=== PATIENT | male | born 1960 | race African-American/Black ===

== ENCOUNTER → 2016-08-22 | Outpatient (CLI) | payer OTHER ==
[2016-08-22 10:50] LABS: APPEARANCE,URINE CLEAR; BILIRUBIN,URINE NEGATIVE (NEGATIVE); GLUCOSE, URINE >=500 mg/dL (NEGATIVE); KETONES,URINE TRACE mg/dL (NEGATIVE); LEUKOCYTE ESTERASE,URINE NEGATIVE (NEGATIVE); NITRITE,URINE NEGATIVE (NEGATIVE); PROTEIN,URINE NEGATIVE (NEGATIVE); URINE SPECIFIC GRAVITY 1.026; UROBILINOGEN,URINE NEGATIVE mg/dL (<2.0)
[2016-08-22 10:55] LABS: ABSOLUTE BASOPHILS # (AUTO) 0.1 10^3/uL (0.0-0.2); ABSOLUTE EOSINOPHILS # (AUTO) 0.2 10^3/uL (0.0-0.6); ABSOLUTE LYMPHOCYTES (AUTO) 4.5 10^3/uL (0.5-4.7); ABSOLUTE MONOCYTES (AUTO) 0.7 10^3/uL (0.1-1.4); ABSOLUTE NEUT (AUTO) 2.6 10^3/uL (1.7-8.2); EOSINOPHILS % (AUTO) 2.9 % (0-6); HEMOGLOBIN 15.1 g/dL (13.5-17.0); HGB HCT DIFFERENCE -1.7; MEAN CORPUSCULAR HEMOGLOBIN 27.6 pg (27.0-33.4); MEAN CORPUSCULAR HGB CONC 32.2 g/dL (32.0-36.0); MEAN CORPUSCULAR VOLUME 86 fl (80-97); MONOCYTES % (AUTO) 8.4 % (3-13); RED BLOOD COUNT 5.47 10^6/uL (4.35-5.55); RED CELL DISTRIBUTION WIDTH 15.7 % (11.5-14.0); SEGMENTED NEUTROPHILS % (AUTO) 31.7 % (42-78); WHITE BLOOD COUNT 8.1 10^3/uL (4.0-10.5)
[2016-08-22 11:20] LABS: ALANINE AMINOTRANSFERASE 27 U/L (21-72); ALKALINE PHOSPHATASE 58 U/L (38-126); ANION GAP 10 (5-19); ASPARTATE AMINO TRANSFERASE 21 U/L (17-59); BILIRUBIN,TOTAL 0.7 mg/dL (0.2-1.3); BLOOD UREA NITROGEN 14 mg/dL (7-20); CALCIUM 9.6 mg/dL (8.4-10.2); CARBON DIOXIDE 30 mmol/L (22-30); CHLORIDE 101 mmol/L (98-107); CREATININE RESULT 1.14 mg/dL (0.52-1.25); GLUCOSE 181 mg/dL (75-110); POTASSIUM 4.7 mmol/L (3.6-5.0); SODIUM 141.2 mmol/L (137-145); TOTAL PROTEIN 7.1 g/dL (6.3-8.2)
[2016-08-23 17:17] LABS: CHOLESTEROL 144.65 mg/dL (0-200); Direct HDL 41 mg/dL (>40); TRIGLYCERIDES 106 mg/dL (<150)
[2016-08-23 17:28] LABS: DIRECT LDL 87 mg/dL (<100)
== END ==
LOC: OD 10:15
PROVIDERS: ATTEND Internal Medicine Cardiovascular Disease
DX: E78.00 Pure hypercholesterolemia, unspecified (principal); Z79.01 Long term (current) use of anticoagulants; Z79.899 Other long term (current) drug therapy
CPT/HCPCS: 36415; 80048; 80061; 80076; 81001; 82272; 85025; 85730

== ENCOUNTER 2016-11-19 14:12 | Emergency (ER) | payer OTHER ==
[2016-11-19] MEDS ORDERED: ASPIRIN 81 MG TABLET, CHEWABLE PO ONE (15:28)
--- NOTE | 2016-11-19 15:28 | ER Document Report ---
ED Medical Screen (RME) - General Chief Complaint: Chest Pain Stated Complaint: CHEST PAIN Time Seen by Provider: 11/19/16 15:27 Mode of Arrival: Ambulatory Information source: Patient Notes: 56-year-old man presenting to the emergency room with intermittent chest discomfort, dyspnea on exertion and exertional fatigue. Patient states his symptoms in [place] going on for the past 2 days. TRAVEL OUTSIDE OF THE [place] IN LAST 30 DAYS: No - Related Data Allergies/Adverse Reactions: metoclopramide HCl [From Reglan] Allergy (Severe, Verified 11/19/16 15:11) Tachycardia adhesive [Adhesive] Allergy (Intermediate, Verified 11/19/16 15:11) BLISTER Past Medical History - Past Medical History Cardiac Medical History: Reports: Hx Coronary Artery Disease, Hx Hypertension Denies: Hx Heart Attack Pulmonary Medical History: Denies: Hx Asthma, Hx Bronchitis, Hx COPD, Hx Pneumonia Neurological Medical History: Denies: Hx Cerebrovascular Accident, Hx Seizures Endocrine Medical History: Reports: Hx Diabetes Mellitus Type 2 Renal/ Medical History: Reports: Hx Kidney Stones. Denies: Hx Peritoneal Dialysis GI Medical History: Reports: Hx Hiatal Hernia. Denies: Hx Hepatitis, Hx Ulcer Musculoskeltal Medical History: Reports Hx Arthritis - general Psychiatric Medical History: Reports: Hx Depression Infectious Medical History: Denies: Hx Hepatitis Past Surgical History: Reports: Hx Orthopedic Surgery - R foot. Denies: Hx Open Heart Surgery, Hx Pacemaker - Immunizations Hx Diphtheria, Pertussis, Tetanus Vaccination: No Physical Exam - Vital signs Vitals: Temp Pulse Resp BP Pulse Ox 98.5 F 86 18 98/69 L 98 11/19/16 14:49 11/19/16 14:49 11/19/16 14:49 11/19/16 14:49 11/19/16 14:49 Course - Vital Signs Vital signs: Temp Pulse Resp BP Pulse Ox 98.5 F 86 18 98/69 L 98 11/19/16 14:49 11/19/16 14:49 11/19/16 14:49 11/19/16 14:49 11/19/16 14:49
[2016-11-19 15:51] LABS: ABSOLUTE EOSINOPHILS # (AUTO) 0.2 10^3/uL (0.0-0.6); ABSOLUTE LYMPHOCYTES (AUTO) 4.5 10^3/uL (0.5-4.7); ABSOLUTE MONOCYTES (AUTO) 0.6 10^3/uL (0.1-1.4); ABSOLUTE NEUT (AUTO) 2.6 10^3/uL (1.7-8.2); BASOPHILS % (AUTO) 0.4 % (0-2); EOSINOPHILS % (AUTO) 2.7 % (0-6); HEMATOCRIT 45.2 % (37.9-51.0); HEMOGLOBIN 15.3 g/dL (13.5-17.0); HGB HCT DIFFERENCE 0.7; LYMPHOCYTES % (AUTO) 55.8 % (13-45); MEAN CORPUSCULAR HEMOGLOBIN 29.9 pg (27.0-33.4); MEAN CORPUSCULAR HGB CONC 33.7 g/dL (32.0-36.0); MEAN CORPUSCULAR VOLUME 89 fl (80-97); RED CELL DISTRIBUTION WIDTH 15.4 % (11.5-14.0); SEGMENTED NEUTROPHILS % (AUTO) 33.1 % (42-78)
[2016-11-19 16:10] LABS: ALANINE AMINOTRANSFERASE 32 U/L (21-72); ALBUMIN 3.6 g/dL (3.5-5.0); ALKALINE PHOSPHATASE 45 U/L (38-126); ANION GAP 13 (5-19); ASPARTATE AMINO TRANSFERASE 30 U/L (17-59); BILIRUBIN,DIRECT 0.3 mg/dL (0.0-0.4); BILIRUBIN,TOTAL 0.7 mg/dL (0.2-1.3); BLOOD UREA NITROGEN 20 mg/dL (7-20); CALCIUM 9.9 mg/dL (8.4-10.2); CARBON DIOXIDE 31 mmol/L (22-30); CHLORIDE 100 mmol/L (98-107); CREATINE KINASE 176 U/L (55-170); CREATININE RESULT 1.17 mg/dL (0.52-1.25); GLUCOSE 87 mg/dL (75-110); SODIUM 143.5 mmol/L (137-145); TOTAL PROTEIN 6.6 g/dL (6.3-8.2)
[2016-11-19 16:13] LABS: POTASSIUM 4.4 mmol/L (3.6-5.0)
--- NOTE | 2016-11-19 16:16 | ER Document Report ---
ED Cardiac <MARSHALL BAE - Last Filed: 11/19/16 20:59> - General Mode of Arrival: Ambulatory Information source: Patient TRAVEL OUTSIDE OF THE [place] IN LAST 30 DAYS: No <YELITZAKYLAH - Last Filed: 11/20/16 22:31> - General Chief Complaint: Chest Pain Stated Complaint: CHEST PAIN Time Seen by Provider: 11/19/16 15:27 Notes: Patient is a 56-year-old -[place] male who presents to the ER today with chest pain on exertion 2 days. Patient has a significant history with 3 heart attacks and one pulmonary embolism, currently on Xarelto. Patient states it hurts to take a deep breath and that his chest pain is all midsternal and sharp in nature. He states that when he lies still there is no chest pain, only with movement. Is not tender to touch. He states that prior to this chest pain starting he did have a day of "really bad acid reflux." He does take Nexium for this and did take it as prescribed. He denies any COPD, asthma , CHF. (KYLAH TORRE) - Related Data Allergies/Adverse Reactions: metoclopramide HCl [From Reglan] Allergy (Severe, Verified 11/19/16 15:11) Tachycardia adhesive [Adhesive] Allergy (Intermediate, Verified 11/19/16 15:11) BLISTER Past Medical History - General Information source: Patient - Social History Smoking Status: Former Smoker Family History: Reviewed & Not Pertinent Patient has suicidal ideation: No Patient has homicidal ideation: No - Past Medical History Cardiac Medical History: Reports: Hx Coronary Artery Disease, Hx Hypertension Denies: Hx Heart Attack Pulmonary Medical History: Denies: Hx Asthma, Hx Bronchitis, Hx COPD, Hx Pneumonia Neurological Medical History: Denies: Hx Cerebrovascular Accident, Hx Seizures Endocrine Medical History: Reports: Hx Diabetes Mellitus Type 2 Renal/ Medical History: Reports: Hx Kidney Stones. Denies: Hx Peritoneal Dialysis GI Medical History: Reports: Hx Hiatal Hernia. Denies: Hx Hepatitis, Hx Ulcer Musculoskeltal Medical History: Reports Hx Arthritis - general Psychiatric Medical History: Reports: Hx Depression Infectious Medical History: Denies: Hx Hepatitis Past Surgical History: Reports: Hx Orthopedic Surgery - R foot. Denies: Hx Open Heart Surgery, Hx Pacemaker - Immunizations Hx Diphtheria, Pertussis, Tetanus Vaccination: No Hx Pneumococcal Vaccination: 04/27/14 <YELITZAKYLAH - Last Filed: 11/20/16 22:31> Review of Systems - Review of Systems Constitutional: No symptoms reported EENT: No symptoms reported Cardiovascular: See HPI Respiratory: See HPI Gastrointestinal: No symptoms reported Genitourinary: No symptoms reported Male Genitourinary: No symptoms reported Musculoskeletal: No symptoms reported Skin: No symptoms reported Hematologic/Lymphatic: No symptoms reported Neurological/Psychological: No symptoms reported <KYLAH TORRE - Last Filed: 11/20/16 22:31> Physical Exam <MARSHALL BAE - Last Filed: 11/19/16 20:59> <KYLAH TORRE - Last Filed: 11/20/16 22:31> - Vital signs Vitals: Temp Pulse Resp BP Pulse Ox 98.5 F 86 18 98/69 L 98 11/19/16 14:49 11/19/16 14:49 11/19/16 14:49 11/19/16 14:49 11/19/16 14:49 - Notes Notes: PHYSICAL EXAMINATION: GENERAL: laying still in bed, uncomfortable when asked to sit or move, but in no acute distress. HEAD: Atraumatic, normocephalic. EYES: Pupils equal round and reactive to light, extraocular movements intact, sclera anicteric, conjunctiva are normal. NECK: Normal range of motion, supple without lymphadenopathy LUNGS: CTAB and equal. No wheezes rales or rhonchi. HEART: Chest nontender to palpation, Regular rate and rhythm without murmurs ABDOMEN: Soft, no tenderness. No guarding, no rebound BACK: no vertebral tenderness, normal ROM GI/: no CVA tenderness EXTREMITIES: Normal range of motion, no pitting edema. No cyanosis. NEUROLOGICAL: Cranial nerves grossly intact. Normal sensory/motor exams. PSYCH: Normal mood, normal affect. SKIN: Warm, Dry, normal turgor, no rashes or lesions noted (KYLAH TORRE) Course - Laboratory Result Diagrams: 11/19/16 15:38 11/19/16 15:38 - Diagnostic Test Radiology reviewed: Image reviewed, Reports reviewed <MARSHALL BAE - Last Filed: 11/19/16 20:59> - Laboratory Result Diagrams: 11/19/16 15:38 11/19/16 15:38 <KYALH TORRE - Last Filed: 11/20/16 22:31> - Re-evaluation Re-evalutation: 11/19/16 19:19 Patient alert and oriented denies chest pain at this time lungs clear hyperactive bowel sounds. Sitting up speaking freely no acute distress noted vital signs stable. 11/19/16 21:03 Second set of cardiac enzymes were negative patient states he is feeling much better after the GI cocktail. He states Kylah told him that she was sent him home with a albuterol inhaler someone will be written for him. Patient to follow-up with his primary doctor tomorrow. Denies any pain at this time no shortness of breath lungs clear respirations regular. (MARSHALL BAE) 11/19/16 16:15 11/19/16 19:11 Labwork unremarkable today including one set of cardiac enzymes that was normal. CTA of the chest negative for any acute pathology such as pulmonary emboli, aneurysm, dissection, chest x-ray normal. Patient feels better after albuterol treatment. Vitals are all stable. EKG revealed a normal sinus rhythm with a rate of 80 bpm without evidence of ischemia. JOSEPHINE Marroquin has taken over care at this time. (KYLAH TORRE) - Vital Signs Vital signs: Temp Pulse Resp BP Pulse Ox 98.4 F 86 14 107/75 97 11/19/16 21:15 11/19/16 14:49 11/19/16 21:11 11/19/16 21:11 11/19/16 21:11 - Laboratory Laboratory results interpreted by me: 11/19/16 11/19/16 15:38 15:38 RDW 15.4 H Plt Count 143 L Seg Neutrophils % 33.1 L Lymphocytes % 55.8 H Carbon Dioxide 31 H Creatine Kinase 176 H Discharge <MARSHALL BAE - Last Filed: 11/19/16 20:59> <KYLAH TORRE - Last Filed: 11/20/16 22:31> - Discharge Clinical Impression: Epigastric pain, Bronchospasm Chest pain Qualifiers: Chest pain type: unspecified Qualified Code(s): R07.9 - Chest pain, unspecified Condition: Stable Disposition: HOME, SELF-CARE Additional Instructions: CHEST PAIN OF UNCLEAR CAUSE: The exact cause of your chest pain isn't clear. Fortunately, there is no evidence of a dangerous medical condition. Further testing may be required to find the source of the pain. Most often, we find that this pain is coming from the chest wall -- the muscles or rib joints in the chest. But chest pain can come from the lung and lung lining, the esophagus, the heart valves or heart lining, and even the stomach or gallbladder. Rest. Eat lightly until the pain is gone. We may prescribe medicine for pain and inflammation. You should call the physician immediately if the pain radiates to the shoulder, jaw or arms; if you start to run a fever or develop a cough; or if you develop shortness of breath, or other new or alarming symptoms. NORMAL EXAM AND WORKUP: At this time, your examination and workup show no significant abnormality. No significant abnormal physical findings were noted. All laboratory, EKG, and imaging (x-ray, CT scans, ultrasound) studies that were ordered show no significant abnormality. Although your examination and all studies that were ordered showed no significant abnormal finding, there are no examinations and no studies that are 100% accurate. There is always the possibility that some abnormality could exist and not be detected with physical examination or within the limits and capabilities of laboratory and other studies. You should return or follow up as you were instructed on your visit today for further evaluation if your symptoms do not resolve. ACID REFLUX DISEASE (GERD): Gastro-Esophageal Reflux Disease (GERD) is caused by stomach acid refluxing back up into the esophagus. The valve at the end of the esophagus may be weak. This is common in persons with a hiatal hernia. GERD symptoms can include indigestion, chest pain, heartburn, or food "sticking." Certain foods, alcohol, and aspirin can make GERD worse. Treatment depends on the severity. Usually, antacids or acid-suppressing medicines are used. When the esophagus is acutely inflamed, the physician will often prescribe membrane-protective drugs such as Carafate. Some patients benefit from medication such as Reglan that tightens the valve at the top of the stomach. Avoid those foods that bring on your symptoms. For many people, these foods are coffee, chocolate, onions, garlic, and carbonated drinks. Don't use alcohol, aspirin, caffeine, or tobacco. Don't eat late at night -- within 4 hours of bedtime. Don't over-eat. If necessary, elevate the head of your bed about 4 inches so that stomach acid will not roll up into your esophagus. Call the doctor if you develop severe chest pain, inability to swallow fluids, fever, or worsening symptoms. ASPIRIN: Aspirin has been shown to have a beneficial effect on blood circulation by reducing the clotting effect of platelets in the blood. These beneficial effects can be achieved by taking just a single baby (81 mg) aspirin a day. It is recommended that any person over the age of forty take a single baby aspirin every day for heart and brain circulation, unless you are allergic to aspirin or have some significant bleeding disorder. It is strongly recommended that people who have proven cardiac or blood circulation disturbances should take a baby aspirin every day. ANTACID THERAPY: You have been instructed to start antacid therapy. Antacids directly neutralize stomach acid. This is useful for acid irritation of the esophagus, gastritis, and ulcers. You should take two tablespoons of antacid one hour after each meal and three hours after each meal. If you are not eating, take the antacid every two hours. If you are using a concentrate (such as Maalox TC), use only one tablespoon. Many antacids affect the bowels. The most common problem is diarrhea. In this case, a pure aluminum hydroxide antacid (such as AlternaGel) can be substituted for some or all doses. If the problem is constipation, add a teaspoon of Milk of Magnesia to each dose. Call the doctor if you experience continued diarrhea or constipation, or if you develop lightheadedness, bloody stool or vomitus, severe abdominal pain, or black stool. PRILOSEC (ACID PUMP INHIBITOR): Prilosec (omeprazole) is an acid-pump inhibitor. It blocks the secretion of hydrogen ions in the acid-producing cells of the stomach. Prilosec keeps your stomach from making acid. Take all medication as prescribed, even after the pain is gone. Regular antacids may be added as needed if you have symptoms while taking this medicine. There are usually no side effects from this medication. Contact your doctor if there is fever, rash, yellow skin color, increasing abdominal pain, weakness, or unusual bruising. Return at once if you develop lightheadedness, black or bloody stool, or bloody vomitus. BRONCHOSPASM: You have tightness in the bronchial tubes, called bronchospasm. This often occurs with bronchial infections. Allergies, inhaled chemicals, and polluted or cold air can also provoke bronchospasm. It's more likely in patients with asthma in the family. Emergency treatment of bronchospasm may include adrenaline shots or bronchodilator aerosol. You may feel lightheaded and have a rapid pulse for an hour or two. Rest and get plenty of fluids. At home, we'll treat you with a bronchodilator inhaler. Antibiotics and corticosteroids may be required for some patients. Until you recover, avoid chemical fumes, dusts, pollens, and exercising in very cold or dry air. If you smoke, stop now!! If you develop a fever, increased wheezing, chest pain, or severe shortness of breath, you should contact the doctor immediately. INHALED BRONCHODILATORS: You have received a treatment of and/or prescription for an inhaled bronchodilator -- a medication which stimulates the airways in the lung to dilate. This improves the flow of air in asthma, bronchitis, and emphysema. These medicines have some similarity to adrenaline, and can cause similar side effects: shakiness, racing heart, and a sense of nervousness. These side effects decrease with time. Contact your doctor if these side effects are severe. Do not over-use the medicine. Too-frequent use of the inhaler may make it ineffective. Call your doctor if the inhaler is not controlling your symptoms at the prescribed doses. USE OF ACETAMINOPHEN (Tylenol): Acetaminophen may be taken for pain relief or fever control. It's much safer than aspirin, offering a wider range of "safe" dosages. It is safe during . Some brand names are Tylenol, Panadol, Datril, Anacin 3, Tempra, and Liquiprin. Acetaminophen can be repeated every four hours. The following are maximum recommended dosages: >89 pounds or adults 650 mg to 900 mg Acetaminophen can be repeated every four hours. Maximum dose not to exceed 4000 mg a day. SMOKING: If you smoke, you should stop smoking. The tar and chemicals in cigarette smoke are harmful. Smoking has been shown to cause: emphysema chronic bronchitis lung cancer mouth and throat cancer stomach and pancreas cancer premature aging defects In addition, smoking increases ear and lung infections in children of smokers. FOLLOW-UP CARE: If you have been referred to a physician for follow-up care, call the physician s office for an appointment as you were instructed or within the next two days. If you experience worsening or a significant change in your symptoms, notify the physician immediately or return to the Emergency Department at any time for re-evaluation. Prescriptions: Albuterol Sulfate [Proair HFA Inhalation Aerosol 8.5 gm MDI] 2 puff IH Q4H PRN # 1 mdi PRN Reason: Famotidine [Pepcid 20 mg Tablet] 20 mg PO DAILY #12 tablet Forms: Return to Work Referrals: SOFI HAYS MD [Primary Care Provider] - Follow up tomorrow
[2016-11-19 16:20] LABS: CREATINE KINASE MB 0.77 ng/mL (<4.55)
[2016-11-19 16:27] LABS: TROPONIN I < 0.012 ng/mL
--- NOTE | 2016-11-19 16:57 | EKG REPORT ---
SEVERITY:- OTHERWISE NORMAL ECG - SINUS RHYTHM BORDERLINE LEFT AXIS DEVIATION : Confirmed by: Enoch Acosta 19-Nov-2016 16:56:26
[2016-11-19] MEDS ORDERED: ALBUTEROL SULFATE 0.083% NEB 2.5 MG/3 ML AMPUL NEB ONE (17:36)
[2016-11-19] MEDS ORDERED: OXYCODONE-ACETAMINOPHEN 5-325 MG TABLET PO ONE (17:36)
[2016-11-19] MEDS ORDERED: KETOROLAC TROMETHAMINE INJ/PF 30 MG/1 ML SDV IV ONE (17:39)
[2016-11-19] MEDS ORDERED: NORMAL SALINE 1000 ML 1,000 ML IV ONE (17:41)
[2016-11-19] MEDS ORDERED: LIDOCAINE 2% VISCOUS SOLN 20 ML UDCUP PO ONE (18:15)
[2016-11-19] MEDS ORDERED: DIPHENHYDRAMINE HCL 25 MG/10 ML UDC PO ONE (18:15)
[2016-11-19] MEDS ORDERED: MAG HYDROX/AL HYDROX/SIMETH SUSP 30 ML UDCUP PO ONE (18:15)
[2016-11-19 21:13] VITALS: BP 107/75
== END 2016-11-19 21:58 | disposition home or self-care (01) ==
LOC: ER 14:12
DX: R10.13 Epigastric pain (principal); J98.01 Acute bronchospasm; R07.9 Chest pain, unspecified; K21.9 Gastro-esophageal reflux disease without esophagitis; I25.10 Atherosclerotic heart disease of native coronary artery without angina pectoris; I25.2 Old myocardial infarction; Z86.711 Personal history of pulmonary embolism; Z79.899 Other long term (current) drug therapy; Z79.02 Long term (current) use of antithrombotics/antiplatelets; Z87.891 Personal history of nicotine dependence; Z87.442 Personal history of urinary calculi
CPT/HCPCS: 93005; 94640; 99285; 96361; 96374; 36415; 82553; 82550; 85025; 80053; 84484; 71010; 71275; 93010; J3490 ×2; J1885; J7030

== ENCOUNTER → 2016-11-20 | Outpatient (CLI) | payer OTHER ==
[2016-11-20 16:14] LABS: ABSOLUTE EOSINOPHILS # (AUTO) 0.3 10^3/uL (0.0-0.6); ABSOLUTE LYMPHOCYTES (AUTO) 2.4 10^3/uL (0.5-4.7); ABSOLUTE MONOCYTES (AUTO) 0.3 10^3/uL (0.1-1.4); ABSOLUTE NEUT (AUTO) 1.3 10^3/uL (1.7-8.2); BASOPHILS % (AUTO) 0.5 % (0-2); EOSINOPHILS % (AUTO) 5.8 % (0-6); HEMATOCRIT 42.7 % (37.9-51.0); HGB HCT DIFFERENCE -0.7; LYMPHOCYTES % (AUTO) 56.6 % (13-45); MEAN CORPUSCULAR HEMOGLOBIN 29.2 pg (27.0-33.4); MEAN CORPUSCULAR HGB CONC 32.8 g/dL (32.0-36.0); MEAN CORPUSCULAR VOLUME 89 fl (80-97); MONOCYTES % (AUTO) 7.8 % (3-13); RED BLOOD COUNT 4.81 10^6/uL (4.35-5.55); RED CELL DISTRIBUTION WIDTH 15.8 % (11.5-14.0); SEGMENTED NEUTROPHILS % (AUTO) 29.3 % (42-78); WHITE BLOOD COUNT 4.3 10^3/uL (4.0-10.5)
[2016-11-20 16:36] LABS: ALANINE AMINOTRANSFERASE 33 U/L (21-72); ALBUMIN 3.5 g/dL (3.5-5.0); ALKALINE PHOSPHATASE 49 U/L (38-126); ANION GAP 13 (5-19); ASPARTATE AMINO TRANSFERASE 31 U/L (17-59); BILIRUBIN,DIRECT 0.2 mg/dL (0.0-0.4); BILIRUBIN,TOTAL 0.3 mg/dL (0.2-1.3); BLOOD UREA NITROGEN 20 mg/dL (7-20); CALCIUM 9.5 mg/dL (8.4-10.2); CARBON DIOXIDE 27 mmol/L (22-30); CHLORIDE 104 mmol/L (98-107); CREATININE RESULT 1.01 mg/dL (0.52-1.25); GLUCOSE 106 mg/dL (75-110); POTASSIUM 4.4 mmol/L (3.6-5.0); SODIUM 143.5 mmol/L (137-145); TOTAL PROTEIN 6.3 g/dL (6.3-8.2)
[2016-11-21 18:20] LABS: APPEARANCE,URINE SLIGHTLY-CLOUDY; BILIRUBIN,URINE NEGATIVE (NEGATIVE); GLUCOSE, URINE NEGATIVE (NEGATIVE); KETONES,URINE NEGATIVE (NEGATIVE); LEUKOCYTE ESTERASE,URINE NEGATIVE (NEGATIVE); NITRITE,URINE NEGATIVE (NEGATIVE); PROTEIN,URINE 30 mg/dL (NEGATIVE); URINE SPECIFIC GRAVITY 1.027; UROBILINOGEN,URINE NEGATIVE mg/dL (<2.0)
== END ==
LOC: OD 14:41
PROVIDERS: ATTEND Internal Medicine Cardiovascular Disease
DX: Z79.01 Long term (current) use of anticoagulants (principal); Z79.899 Other long term (current) drug therapy
CPT/HCPCS: 36415; 80048; 80076; 81001; 82272; 85025; 85730

== ENCOUNTER → 2017-02-25 | Outpatient (CLI) | payer OTHER ==
[2017-02-25 14:19] LABS: APPEARANCE,URINE CLEAR; BILIRUBIN,URINE NEGATIVE (NEGATIVE); GLUCOSE, URINE NEGATIVE (NEGATIVE); KETONES,URINE NEGATIVE (NEGATIVE); LEUKOCYTE ESTERASE,URINE NEGATIVE (NEGATIVE); NITRITE,URINE NEGATIVE (NEGATIVE); PROTEIN,URINE NEGATIVE (NEGATIVE); URINE SPECIFIC GRAVITY 1.015; UROBILINOGEN,URINE NEGATIVE mg/dL (<2.0)
[2017-02-25 14:19] LABS: HEMATOCRIT 39.5 % (37.9-51.0); HEMOGLOBIN 13.3 g/dL (13.5-17.0); HGB HCT DIFFERENCE 0.4; MEAN CORPUSCULAR HGB CONC 33.7 g/dL (32.0-36.0); MEAN CORPUSCULAR VOLUME 95 fl (80-97); RED BLOOD COUNT 4.15 10^6/uL (4.35-5.55); RED CELL DISTRIBUTION WIDTH 13.7 % (11.5-14.0); WHITE BLOOD COUNT 4.9 10^3/uL (4.0-10.5)
[2017-02-25 14:52] LABS: ALANINE AMINOTRANSFERASE 22 U/L (21-72); ALBUMIN 3.5 g/dL (3.5-5.0); ALKALINE PHOSPHATASE 61 U/L (38-126); ANION GAP 14 (5-19); ASPARTATE AMINO TRANSFERASE 20 U/L (17-59); BILIRUBIN,DIRECT 0.3 mg/dL (0.0-0.4); BILIRUBIN,TOTAL 0.5 mg/dL (0.2-1.3); BLOOD UREA NITROGEN 13 mg/dL (7-20); CARBON DIOXIDE 24 mmol/L (22-30); CHLORIDE 104 mmol/L (98-107); CREATININE RESULT 0.91 mg/dL (0.52-1.25); GLUCOSE 191 mg/dL (75-110); POTASSIUM 4.2 mmol/L (3.6-5.0); SODIUM 141.7 mmol/L (137-145); TOTAL PROTEIN 6.4 g/dL (6.3-8.2)
== END ==
LOC: OD 12:47
PROVIDERS: ATTEND Internal Medicine Cardiovascular Disease
DX: I48.0 Paroxysmal atrial fibrillation (principal); Z79.01 Long term (current) use of anticoagulants; Z79.899 Other long term (current) drug therapy
CPT/HCPCS: 36415; 80048; 80076; 81001; 82272; 83735; 85027; 85730

== ENCOUNTER → 2017-08-12 | Outpatient (CLI) | payer OTHER ==
[2017-08-12 16:14] LABS: HEMATOCRIT 38.3 % (37.9-51.0); HEMOGLOBIN 12.7 g/dL (13.5-17.0); MEAN CORPUSCULAR HEMOGLOBIN 29.2 pg (27.0-33.4); MEAN CORPUSCULAR HGB CONC 33.1 g/dL (32.0-36.0); MEAN CORPUSCULAR VOLUME 88 fl (80-97); PLATELET COUNT 147 10^3/uL (150-450); RED BLOOD COUNT 4.34 10^6/uL (4.35-5.55); RED CELL DISTRIBUTION WIDTH 13.7 % (11.5-14.0); WHITE BLOOD COUNT 6.3 10^3/uL (4.0-10.5)
[2017-08-12 16:25] LABS: APPEARANCE,URINE CLEAR; BILIRUBIN,URINE NEGATIVE (NEGATIVE); COLOR,URINE YELLOW; GLUCOSE, URINE NEGATIVE (NEGATIVE); KETONES,URINE NEGATIVE (NEGATIVE); LEUKOCYTE ESTERASE,URINE NEGATIVE (NEGATIVE); NITRITE,URINE NEGATIVE (NEGATIVE); PROTEIN,URINE NEGATIVE (NEGATIVE); URINE SPECIFIC GRAVITY 1.012; UROBILINOGEN,URINE NEGATIVE mg/dL (<2.0)
[2017-08-12 16:31] LABS: ALANINE AMINOTRANSFERASE 86 U/L (21-72); ALBUMIN 4.3 g/dL (3.5-5.0); ALKALINE PHOSPHATASE 63 U/L (38-126); ANION GAP 9 (5-19); ASPARTATE AMINO TRANSFERASE 53 U/L (17-59); BILIRUBIN,DIRECT 0.4 mg/dL (0.0-0.4); BILIRUBIN,TOTAL 0.5 mg/dL (0.2-1.3); BLOOD UREA NITROGEN 17 mg/dL (7-20); CALCIUM 9.7 mg/dL (8.4-10.2); CARBON DIOXIDE 29 mmol/L (22-30); CHLORIDE 106 mmol/L (98-107); GLUCOSE 113 mg/dL (75-110); POTASSIUM 4.9 mmol/L (3.6-5.0); TOTAL PROTEIN 7.2 g/dL (6.3-8.2)
[2017-08-14 12:15] LABS: MAGNESIUM 1.6 mg/dL (1.6-2.3)
== END ==
LOC: OD 14:42
PROVIDERS: ATTEND Internal Medicine Cardiovascular Disease
DX: I48.0 Paroxysmal atrial fibrillation (principal); Z79.01 Long term (current) use of anticoagulants; Z79.899 Other long term (current) drug therapy
CPT/HCPCS: 36415; 80048; 80076; 81001; 82272; 83735; 85027; 85730

== ENCOUNTER → 2017-12-01 | Outpatient (CLI) | payer OTHER ==
[2017-12-01 13:00] LABS: HEMATOCRIT 42.5 % (37.9-51.0); HEMOGLOBIN 14.1 g/dL (13.5-17.0); MEAN CORPUSCULAR HEMOGLOBIN 29.6 pg (27.0-33.4); MEAN CORPUSCULAR HGB CONC 33.2 g/dL (32.0-36.0); MEAN CORPUSCULAR VOLUME 89 fl (80-97); PLATELET COUNT 202 10^3/uL (150-450); RED BLOOD COUNT 4.76 10^6/uL (4.35-5.55); RED CELL DISTRIBUTION WIDTH 14.8 % (11.5-14.0); WHITE BLOOD COUNT 6.5 10^3/uL (4.0-10.5)
[2017-12-01 13:00] LABS: APPEARANCE,URINE CLEAR; BILIRUBIN,URINE NEGATIVE (NEGATIVE); COLOR,URINE YELLOW; GLUCOSE, URINE >=500 mg/dL (NEGATIVE); KETONES,URINE NEGATIVE (NEGATIVE); LEUKOCYTE ESTERASE,URINE NEGATIVE (NEGATIVE); NITRITE,URINE NEGATIVE (NEGATIVE); PROTEIN,URINE NEGATIVE (NEGATIVE); URINE SPECIFIC GRAVITY 1.023
[2017-12-01 13:22] LABS: ALANINE AMINOTRANSFERASE 96 U/L (21-72); ALBUMIN 3.8 g/dL (3.5-5.0); ALKALINE PHOSPHATASE 70 U/L (38-126); ANION GAP 12 (5-19); ASPARTATE AMINO TRANSFERASE 64 U/L (17-59); BILIRUBIN,DIRECT 0.3 mg/dL (0.0-0.4); BILIRUBIN,TOTAL 0.7 mg/dL (0.2-1.3); BLOOD UREA NITROGEN 15 mg/dL (7-20); CALCIUM 9.5 mg/dL (8.4-10.2); CARBON DIOXIDE 31 mmol/L (22-30); CHLORIDE 101 mmol/L (98-107); GLUCOSE 101 mg/dL (75-110); POTASSIUM 4.7 mmol/L (3.6-5.0); SODIUM 144.1 mmol/L (137-145); TOTAL PROTEIN 6.7 g/dL (6.3-8.2)
== END ==
LOC: OD 12:08
PROVIDERS: ATTEND Internal Medicine Cardiovascular Disease
DX: I48.0 Paroxysmal atrial fibrillation (principal); Z79.01 Long term (current) use of anticoagulants; Z79.899 Other long term (current) drug therapy
CPT/HCPCS: 36415; 80048; 80076; 81001; 82272; 83735; 84443; 85027; 85730

== ENCOUNTER → 2018-01-13 | Outpatient (CLI) | payer OTHER ==
[2018-01-13 16:26] LABS: ALANINE AMINOTRANSFERASE 105 U/L (21-72); ALKALINE PHOSPHATASE 68 U/L (38-126); ASPARTATE AMINO TRANSFERASE 85 U/L (17-59); BILIRUBIN,DIRECT 0.4 mg/dL (0.0-0.4); BILIRUBIN,TOTAL 0.4 mg/dL (0.2-1.3); CHOLESTEROL 107.86 mg/dL (0-200); CREATINE KINASE 89 U/L (55-170); TOTAL PROTEIN 7.1 g/dL (6.3-8.2); TRIGLYCERIDES 97 mg/dL (<150)
[2018-01-13 16:38] LABS: DIRECT LDL 57 mg/dL (<100)
== END ==
LOC: OD 14:38
PROVIDERS: ATTEND Internal Medicine Cardiovascular Disease
DX: E78.00 Pure hypercholesterolemia, unspecified (principal); Z79.01 Long term (current) use of anticoagulants; Z79.899 Other long term (current) drug therapy
CPT/HCPCS: 36415; 80061; 80076; 82550

== ENCOUNTER → 2018-03-04 | Outpatient (CLI) | payer OTHER ==
[2018-03-04 16:23] LABS: HEMOGLOBIN 14.6 g/dL (13.5-17.0); MEAN CORPUSCULAR HEMOGLOBIN 29.1 pg (27.0-33.4); MEAN CORPUSCULAR HGB CONC 33.2 g/dL (32.0-36.0); MEAN CORPUSCULAR VOLUME 88 fl (80-97); PLATELET COUNT 192 10^3/uL (150-450); RED BLOOD COUNT 5.02 10^6/uL (4.35-5.55); RED CELL DISTRIBUTION WIDTH 15.2 % (11.5-14.0); WHITE BLOOD COUNT 5.5 10^3/uL (4.0-10.5)
[2018-03-04 16:25] LABS: APPEARANCE,URINE CLEAR; BILIRUBIN,URINE NEGATIVE (NEGATIVE); COLOR,URINE YELLOW; GLUCOSE, URINE >=500 mg/dL (NEGATIVE); KETONES,URINE NEGATIVE (NEGATIVE); LEUKOCYTE ESTERASE,URINE NEGATIVE (NEGATIVE); NITRITE,URINE NEGATIVE (NEGATIVE); PROTEIN,URINE NEGATIVE (NEGATIVE); URINE SPECIFIC GRAVITY 1.018; UROBILINOGEN,URINE NEGATIVE mg/dL (<2.0)
[2018-03-04 16:54] LABS: ALANINE AMINOTRANSFERASE 108 U/L (21-72); ALBUMIN 3.6 g/dL (3.5-5.0); ALKALINE PHOSPHATASE 69 U/L (38-126); ANION GAP 15 (5-19); ASPARTATE AMINO TRANSFERASE 85 U/L (17-59); BILIRUBIN,DIRECT 0.3 mg/dL (0.0-0.4); BILIRUBIN,TOTAL 0.4 mg/dL (0.2-1.3); BLOOD UREA NITROGEN 10 mg/dL (7-20); CALCIUM 9.3 mg/dL (8.4-10.2); CARBON DIOXIDE 23 mmol/L (22-30); CHLORIDE 106 mmol/L (98-107); GLUCOSE 202 mg/dL (75-110); POTASSIUM 4.6 mmol/L (3.6-5.0); SODIUM 144.2 mmol/L (137-145); TOTAL PROTEIN 6.8 g/dL (6.3-8.2)
== END ==
LOC: OD 15:05
PROVIDERS: ATTEND Internal Medicine Cardiovascular Disease
DX: Z79.01 Long term (current) use of anticoagulants (principal); Z79.899 Other long term (current) drug therapy
CPT/HCPCS: 36415; 80048; 80076; 81001; 82272; 85027; 85730

== ENCOUNTER → 2018-04-09 | Outpatient (CLI) | payer OTHER ==
--- NOTE | 2018-04-09 10:40 | RADIOLOGY REPORT (SQ) ---
EXAM DESCRIPTION: U/S ABDOMEN LIMITED W/O DOP COMPLETED DATE/TIME: 04/09/2018 10:30 am REASON FOR STUDY: ABN LFT (R94.5) R94.5 ABNORMAL RESULTS OF LIVER FUNCTION STUDIES COMPARISON: None. TECHNIQUE: Dynamic and static grayscale images acquired of the right upper quadrant and recorded on PACS. Additional selected color Doppler and spectral images recorded. LIMITATIONS: Study limited due to acoustical interference from fat or from air in the bowel. FINDINGS: PANCREAS: Visualized pancreas and duct normal. Parts of pancreas poorly seen secondary to acoustical interference from fat or from air in the bowel. LIVER: No masses. Diffuse increased echogenicity. LIVER VASCULATURE: Normal directional flow of the main portal vein and hepatic veins. GALLBLADDER: Gallstone(s). No pericholecystic fluid. No wall thickening. ULTRASOUND-DETECTED HINKLE'S SIGN: Negative. INTRAHEPATIC DUCTS AND COMMON DUCT: CBD and intrahepatic ducts normal caliber. No filling defects. INFERIOR VENA CAVA: Normal flow. AORTA: No aneurysm. RIGHT KIDNEY: Normal size. Normal echogenicity. Cortical cysts measuring 2.2 cm and 5.3 cm. No bhanu id or suspicious masses. No hydronephrosis. No calcifications. PERITONEAL CAVITY AND RIGHT PLEURAL SPACE: No ascites or effusions. OTHER: No other significant finding. IMPRESSION: 1. FATTY INFILTRATION OF THE LIVER. NO FOCAL LESIONS. 2. GALLSTONES. 3. CORTICAL CYSTS IN THE RIGHT KIDNEY. TECHNICAL DOCUMENTATION: JOB ID: [id number] [facility]- All Rights Reserved Reading location - IP/workstation name: [email or web address]
== END ==
LOC: RAD 09:40
PROVIDERS: ATTEND Internal Medicine Gastroenterology
DX: R94.5 Abnormal results of liver function studies (principal)
CPT/HCPCS: 76705

== ENCOUNTER → 2018-05-26 | Outpatient (CLI) | payer OTHER ==
[2018-05-26 14:51] LABS: APPEARANCE,URINE CLEAR; BILIRUBIN,URINE NEGATIVE (NEGATIVE); COLOR,URINE YELLOW; GLUCOSE, URINE >=500 mg/dL (NEGATIVE); KETONES,URINE NEGATIVE (NEGATIVE); LEUKOCYTE ESTERASE,URINE NEGATIVE (NEGATIVE); NITRITE,URINE NEGATIVE (NEGATIVE); PROTEIN,URINE NEGATIVE (NEGATIVE); URINE SPECIFIC GRAVITY 1.036
[2018-05-26 14:57] LABS: HEMATOCRIT 44.8 % (37.9-51.0); MEAN CORPUSCULAR HEMOGLOBIN 29.4 pg (27.0-33.4); MEAN CORPUSCULAR HGB CONC 33.5 g/dL (32.0-36.0); MEAN CORPUSCULAR VOLUME 88 fl (80-97); PLATELET COUNT 174 10^3/uL (150-450); RED CELL DISTRIBUTION WIDTH 15.8 % (11.5-14.0); WHITE BLOOD COUNT 7.1 10^3/uL (4.0-10.5)
[2018-05-26 15:13] LABS: ALANINE AMINOTRANSFERASE 89 U/L (21-72); ALBUMIN 3.8 g/dL (3.5-5.0); ALKALINE PHOSPHATASE 85 U/L (38-126); ANION GAP 10 (5-19); ASPARTATE AMINO TRANSFERASE 81 U/L (17-59); BILIRUBIN,DIRECT 0.3 mg/dL (0.0-0.4); BILIRUBIN,TOTAL 0.5 mg/dL (0.2-1.3); BLOOD UREA NITROGEN 15 mg/dL (7-20); CALCIUM 9.5 mg/dL (8.4-10.2); CARBON DIOXIDE 28 mmol/L (22-30); CHLORIDE 103 mmol/L (98-107); GLUCOSE 181 mg/dL (75-110); POTASSIUM 4.5 mmol/L (3.6-5.0); SODIUM 141.4 mmol/L (137-145); TOTAL PROTEIN 7.1 g/dL (6.3-8.2)
== END ==
LOC: OD 14:01
PROVIDERS: ATTEND Internal Medicine Cardiovascular Disease
DX: Z79.01 Long term (current) use of anticoagulants (principal); Z79.899 Other long term (current) drug therapy
CPT/HCPCS: 36415; 80048; 80076; 81001; 82272; 85027; 85730

== ENCOUNTER → 2018-08-21 | Outpatient (CLI) | payer MEDICARE ==
[2018-08-21 17:02] LABS: APPEARANCE,URINE CLEAR; BILIRUBIN,URINE NEGATIVE (NEGATIVE); COLOR,URINE YELLOW; GLUCOSE, URINE >=500 mg/dL (NEGATIVE); KETONES,URINE NEGATIVE (NEGATIVE); LEUKOCYTE ESTERASE,URINE NEGATIVE (NEGATIVE); NITRITE,URINE NEGATIVE (NEGATIVE); PROTEIN,URINE NEGATIVE (NEGATIVE); UROBILINOGEN,URINE NEGATIVE mg/dL (<2.0)
[2018-08-21 17:19] LABS: HEMATOCRIT 43.5 % (37.9-51.0); HEMOGLOBIN 14.3 g/dL (13.5-17.0); MEAN CORPUSCULAR HEMOGLOBIN 28.7 pg (27.0-33.4); MEAN CORPUSCULAR VOLUME 87 fl (80-97); PLATELET COUNT 195 10^3/uL (150-450); RED BLOOD COUNT 4.99 10^6/uL (4.35-5.55); RED CELL DISTRIBUTION WIDTH 14.6 % (11.5-14.0); WHITE BLOOD COUNT 7.1 10^3/uL (4.0-10.5)
[2018-08-21 17:27] LABS: ALANINE AMINOTRANSFERASE 81 U/L (21-72); ALBUMIN 3.9 g/dL (3.5-5.0); ALKALINE PHOSPHATASE 81 U/L (38-126); ANION GAP 11 (5-19); ASPARTATE AMINO TRANSFERASE 50 U/L (17-59); BILIRUBIN,DIRECT 0.2 mg/dL (0.0-0.4); BILIRUBIN,TOTAL 0.5 mg/dL (0.2-1.3); BLOOD UREA NITROGEN 8 mg/dL (7-20); CALCIUM 9.4 mg/dL (8.4-10.2); CARBON DIOXIDE 27 mmol/L (22-30); CHLORIDE 102 mmol/L (98-107); GLUCOSE 239 mg/dL (75-110); POTASSIUM 4.4 mmol/L (3.6-5.0); SODIUM 139.8 mmol/L (137-145); TOTAL PROTEIN 6.7 g/dL (6.3-8.2)
== END ==
LOC: OD 15:40
PROVIDERS: ATTEND Internal Medicine Cardiovascular Disease
DX: I48.0 Paroxysmal atrial fibrillation (principal); Z79.01 Long term (current) use of anticoagulants; Z79.899 Other long term (current) drug therapy
CPT/HCPCS: 36415; 80048; 80076; 81001; 82272; 85027; 85730

== ENCOUNTER 2018-09-02 15:06 | Inpatient (IN) | payer MEDICARE, OTHER ==
--- NOTE | 2018-09-02 17:44 | ER Document Report ---
ED Medical Screen (RME) - General Chief Complaint: Fall Stated Complaint: BALANCE ISSUES Time Seen by Provider: 09/02/18 17:28 Primary Care Provider: ERICK CUADRA MD [Primary Care Provider] - Follow up as needed Mode of Arrival: Wheelchair Information source: Patient, Relative, [facility] Records Notes: 58-year-old male with hypertension, coronary artery disease, type 2 diabetes presents with his who is concerned for increasing lethargy, right-sided weakness, slurred speech, multiple falls. Patient's last known well was 5 days prior to arrival. I have greeted and performed a rapid initial assessment of this patient. A comprehensive ED assessment and evaluation of the patient, analysis of test results and completion of medical decision making process we will be contacted by additional ED providers. PHYSICAL EXAMINATION: Vital signs reviewed GENERAL: Sleepy but answering questions. LUNGS: No respiratory distress Musculoskeletal: Normal range of motion NEUROLOGICAL: Slowed speech. Cranial nerves II through XII intact. PSYCH: Normal mood, normal affect. SKIN: Warm, Dry, normal turgor, no rashes or lesions noted. TRAVEL OUTSIDE OF THE [place] IN LAST 30 DAYS: No - HPI Onset: Last week Onset/Duration: Persistent Associated Symptoms: Dizzy/lightheaded Exacerbated by: Denies Relieved by: Denies Similar symptoms previously: No Recently seen / treated by doctor: No - Related Data Smoking: Non-smoker Frequency of alcohol use: None Drug Abuse: None Allergies/Adverse Reactions: metoclopramide HCl [From Reglan] Allergy (Severe, Verified 09/02/18 15:07) Tachycardia adhesive [Adhesive] Allergy (Intermediate, Verified 09/02/18 15:07) BLISTER Past Medical History - Past Medical History Cardiac Medical History: Reports: Hx Coronary Artery Disease, Hx Hypertension Denies: Hx Heart Attack Pulmonary Medical History: Denies: Hx Asthma, Hx Bronchitis, Hx COPD, Hx Pneumonia Neurological Medical History: Denies: Hx Cerebrovascular Accident, Hx Seizures Endocrine Medical History: Reports: Hx Diabetes Mellitus Type 2 Renal/ Medical History: Reports: Hx Kidney Stones. Denies: Hx Peritoneal Dialysis GI Medical History: Reports: Hx Hiatal Hernia. Denies: Hx Hepatitis, Hx Ulcer Musculoskeltal Medical History: Reports Hx Arthritis - general Psychiatric Medical History: Reports: Hx Depression Infectious Medical History: Denies: Hx Hepatitis Past Surgical History: Reports: Hx Cardiac Surgery, Hx Orthopedic Surgery - R foot. Denies: Hx Open Heart Surgery, Hx Pacemaker - Immunizations Hx Diphtheria, Pertussis, Tetanus Vaccination: No Physical Exam - Vital signs Vitals: Temp Pulse Resp BP Pulse Ox 99.0 F 97 20 117/83 96 09/02/18 15:39 09/02/18 15:39 09/02/18 15:39 09/02/18 15:39 09/02/18 15:39 Course - Vital Signs Vital signs: Temp Pulse Resp BP Pulse Ox 99.0 F 97 20 117/83 96 09/02/18 15:39 09/02/18 15:39 09/02/18 15:39 09/02/18 15:39 09/02/18 15:39 Doctor's Discharge - Discharge Referrals: ERICK CUADRA MD [Primary Care Provider] - Follow up as needed
--- NOTE | 2018-09-02 18:01 | RADIOLOGY REPORT (SQ) ---
EXAM DESCRIPTION: CHEST SINGLE VIEW COMPLETED DATE/TIME: 09/02/2018 5:50 pm REASON FOR STUDY: stroke-like sx's COMPARISON: 03/22/2015 EXAM PARAMETERS: NUMBER OF VIEWS: One view. TECHNIQUE: Single frontal radiographic view of the chest acquired. RADIATION DOSE: NA LIMITATIONS: None. FINDINGS: LUNGS AND PLEURA: There is mild blunting of the left costophrenic angle. No infiltrate or mass is seen. MEDIASTINUM AND HILAR STRUCTURES: No masses. Contour normal. HEART AND VASCULAR STRUCTURES: Heart normal in size. Normal vasculature. BONES: No acute findings. HARDWARE: None in the chest. OTHER: No other significant finding. IMPRESSION: There appears to be a minimal left pleural effusion. TECHNICAL DOCUMENTATION: JOB ID: [id number] [employer]- All Rights Reserved Reading location - IP/workstation name: [email or web address]
--- NOTE | 2018-09-02 18:10 | ER Document Report ---
ED Fall - General Chief Complaint: Fall Stated Complaint: BALANCE ISSUES Time Seen by Provider: 09/02/18 18:10 Primary Care Provider: ERICK CUADRA MD [EMERITUS] - Follow up as needed Mode of Arrival: Wheelchair Information source: Patient, Relative, [facility] Records Notes: HISTORY OF PRESENT ILLNESS: Patient is a 58-year-old male with a past medical history of multiple chronic health conditions including coronary artery disease status post quintuple bypass, pulmonary embolism, and depression recently started on lithium who presents with frequent falls and weakness of the extremities that began approximately 4 days ago. The patient's states that she has found the patient "on the floor at least 4-5 times since this weekend." Location: Global, extremities Onset: Gradual 4 days ago Provocation: Unknown Quality: "Weakness" Radiation: None Severity: Moderate Timing: Intermittent Associated symptoms: Denies fevers or chills, no chest pain or shortness of breath, no vision changes, no recent head injuries REVIEW OF SYSTEMS: CONSTITUTIONAL : Positive for generalized weakness. Denies fever or chills, no sweats. Denies recent illness. EENT: Denies eye, ear, throat, or mouth pain or symptoms. Denies nasal or sinus congestion. CARDIOVASCULAR: Denies chest pain. RESPIRATORY: Denies cough, cold, or chest congestion. Denies shortness of breath, difficulty breathing, or wheezing. GASTROINTESTINAL: Denies abdominal pain. Denies nausea, vomiting, or diarrhea. Denies constipation. GENITOURINARY: Denies difficulty urinating, painful urination, burning, frequency, or blood in urine. MUSCULOSKELETAL: Denies neck or back pain or joint pain or swelling. SKIN: Denies rash or skin lesions. HEMATOLOGIC : Denies easy bruising or bleeding. LYMPHATIC: Denies swollen, enlarged glands. NEUROLOGICAL: Positive for frequent falls and weakness of the extremities. Denies altered mental status or loss of consciousness. Denies headache. Denies problems with gait or speech. Denies sensory or motor loss. PSYCHIATRIC: Denies anxiety or stress or depression. All other systems reviewed and negative. PHYSICAL EXAMINATION: GENERAL: Tired-appearing, well-nourished and in no acute distress. HEAD: Atraumatic, normocephalic. No scalp deformity, depression, or crepitance. EYES: Pupils are 3 mm and equal/round/reactive to light, extraocular movements intact, sclera anicteric, conjunctiva are normal. ENT: Nares patent bilaterally, oropharynx clear without exudates or palatal petechia. Moist mucous membranes. No tonsil hypertrophy. NECK: Normal range of motion, supple without lymphadenopathy. LUNGS: Breath sounds present, equal, and clear to auscultation bilaterally. No wheezes, rales, or rhonchi. HEART: Regular rate and rhythm without murmurs, rubs, or gallops. 2+ peripheral pulses. Normal capillary refill. ABDOMEN: Soft, nontender, nondistended. Normoactive bowel sounds. No guarding, no rebound. No masses appreciated. BACK: Normal contour, no midline tenderness. Rectal exam deferred. GENITAL: Deferred. EXTREMITIES: Normal range of motion, no pitting or edema. No cyanosis. NEUROLOGICAL: No focal neurological deficits. Cranial nerves III through XII grossly intact. Moves all extremities spontaneously and on command. PSYCH: Normal mood, normal affect. No suicidal thoughts/ideations. No homocidal thoughts/ideations. No hallucinations. SKIN: Warm, dry, normal turgor, no rashes or lesions noted. ASSESSMENT AND PLAN: This patient is a 58-year-old male who presents with generalized weakness and frequent falls beginning 4 days ago. Could represent stroke versus TIA versus metabolic versus adverse reaction to medication as the patient recently started lithium. 1. Will obtain labs, urine, drug screen, alcohol panel, head CT, and lithium level. 2. Will admit to the hospital. TRAVEL OUTSIDE OF THE [place] IN LAST 30 DAYS: No - Related data Allergies/Adverse Reactions: metoclopramide HCl [From Reglan] Allergy (Severe, Verified 09/02/18 15:07) Tachycardia adhesive [Adhesive] Allergy (Intermediate, Verified 09/02/18 15:07) BLISTER Past Medical History - General Information source: Patient, Relative, [facility] Records - Social History Smoking Status: Unknown if Ever Smoked Frequency of alcohol use: None Drug Abuse: None Lives with: Family Family History: Reviewed & Not Pertinent Patient has suicidal ideation: No Patient has homicidal ideation: No - Past Medical History Cardiac Medical History: Reports: Hx Coronary Artery Disease, Hx Hypertension Denies: Hx Heart Attack Pulmonary Medical History: Reports: Other - History of pulmonary embolism Denies: Hx Asthma, Hx Bronchitis, Hx COPD, Hx Pneumonia EENT Medical History: Reports: None Neurological Medical History: Reports: None. Denies: Hx Cerebrovascular Accident, Hx Seizures Endocrine Medical History: Reports: Hx Diabetes Mellitus Type 2 Renal/ Medical History: Reports: Hx Kidney Stones. Denies: Hx Peritoneal Dialysis Malignancy Medical History: Reports None GI Medical History: Reports: Hx Hiatal Hernia. Denies: Hx Hepatitis, Hx Ulcer Musculoskeletal Medical History: Reports Hx Arthritis - general Skin Medical History: Reports None Psychiatric Medical History: Reports: Hx Depression Traumatic Medical History: Reports: None Infectious Medical History: Reports: None. Denies: Hx Hepatitis Past Surgical History: Reports: Hx Cardiac Surgery, Hx Orthopedic Surgery - R foot. Denies: Hx Open Heart Surgery, Hx Pacemaker - Immunizations Immunizations up to date: Yes Hx Diphtheria, Pertussis, Tetanus Vaccination: Yes History of Influenza Vaccine for 04/2017 - 09/2017 Season: Yes Hx Pneumococcal Vaccination: 04/27/14 Physical Exam - Vital signs Vitals: Temp Pulse Resp BP Pulse Ox 99.0 F 97 20 117/83 96 09/02/18 15:39 09/02/18 15:39 09/02/18 15:39 09/02/18 15:39 09/02/18 15:39 Course - Re-evaluation Re-evalutation: 09/02/18 19:[address] and cervical spine CT are both negative for acute pathology. - Vital Signs Vital signs: Temp Pulse Resp BP Pulse Ox 99.0 F 83 12 127/93 H 98 09/02/18 15:39 09/02/18 18:00 09/02/18 18:06 09/02/18 18:06 09/02/18 18:06 - Laboratory Result Diagrams: 09/02/18 18:00 09/02/18 18:49 Laboratory results interpreted by me: 09/02/18 09/02/18 09/02/18 18:00 18:49 18:49 RDW 15.0 H PT 26.9 H Creatinine 1.36 H Est GFR (Non-Af Amer) 53 L Creatine Kinase 52 L [place] 09/02/18 18:49 RDW PT Creatinine Est GFR (Non-Af Amer) Creatine Kinase [place] 1.3 H - Diagnostic Test Radiology reviewed: Image reviewed, Reports reviewed - EKG Interpretation by Me EKG shows normal: Sinus rhythm Rate: Normal Rhythm: NSR Anderson/QRS: No: Right axis deviation, Left axis deviation, RBBB, LBBB, IVCD, LAHB/LAFB, LPHB/LPFB, Bifasicular block Voltage: No: Increased voltage, Consistant with LVH, Decreased voltage, Throughout, Limb leads P Waves: No: WING, LAE, Absent, AV Dissociation, Other Heart block present: No: 1st Degree, Mobitz 1, Mobitz 2, CHB (3rd degree block) When compared to previous EKG there are: No significant change - Consults Dr. Arteaga Time consulted: 20:21 - will admit Consulted provider: will come to ER Discharge - Discharge Clinical Impression: General weakness Condition: Stable Disposition: ADMITTED INPATIENT Admitting Provider: Hospitalist Unit Admitted: Medical Floor Referrals: ERICK CUADRA MD [EMERITUS] - Follow up as needed
--- NOTE | 2018-09-02 18:14 | RADIOLOGY REPORT (SQ) ---
EXAM DESCRIPTION: CT HEAD WITHOUT COMPLETED DATE/TIME: 09/02/2018 6:04 pm REASON FOR STUDY: stroke-like sx's COMPARISON: 10/20/2015 TECHNIQUE: Axial images acquired through the brain without intravenous contrast. Images reviewed wi th bone, brain and subdural windows. Additional sagittal and coronal reconstructions were generated. Images stored on PACS. All CT scanners at this facility use dose modulation, iterative reconstruction, and/or weight based d osing when appropriate to reduce radiation dose to as low as reasonably achievable (ALARA). [facility]: Dose Right [facility]: CareDose [facility]: Dose Right [facility]: Teradose 4D [facility]: [employer] RADIATION DOSE: CT Rad equipment meets quality standard of care and radiation dose reduction techniq ues were employed. CTDIvol: 53.2 mGy. DLP: 964 mGy-cm. mGy. LIMITATIONS: None. FINDINGS: VENTRICLES: Normal size and contour. CEREBRUM: No masses. No hemorrhage. No midline shift. No evidence for acute infarction. Normal gra y/white matter differentiation. No areas of low density in the white matter. CEREBELLUM: No masses. No hemorrhage. No alteration of density. No evidence for acute infarction. EXTRAAXIAL SPACES: No fluid collections. No masses. ORBITS AND GLOBE: No intra- or extraconal masses. Normal contour of globe without masses. CALVARIUM: No fracture. PARANASAL SINUSES: No fluid or mucosal thickening. SOFT TISSUES: No mass or hematoma. OTHER: No other significant finding. IMPRESSION: NORMAL BRAIN CT WITHOUT CONTRAST. EVIDENCE OF ACUTE STROKE: NO. COMMENT: Quality ID # [id number]: Final reports with documentation of one or more dose reduction techniques (e.g., Automated exposure control, adjustment of the mA and/or kV according to patient size, use of iterative reconstruction technique) TECHNICAL DOCUMENTATION: JOB ID: [id number] [employer]- All Rights Reserved Reading location - IP/workstation name: [email or web address]
--- NOTE | 2018-09-02 18:17 | RADIOLOGY REPORT (SQ) ---
EXAM DESCRIPTION: CT CERVICAL SPINE WITHOUT COMPLETED DATE/TIME: 09/02/2018 6:04 pm REASON FOR STUDY: fall COMPARISON: None. TECHNIQUE: Axial images acquired through the cervical spine without intravenous contrast. Images re viewed with lung, soft tissue and bone windows. Reconstructed coronal and sagittal MPR images review ed. Images stored on PACS. All CT scanners at this facility use dose modulation, iterative reconstruction, and/or weight based d osing when appropriate to reduce radiation dose to as low as reasonably achievable (ALARA). [facility]: Dose Right [facility]: CareDose [facility]: Dose Right [facility]: Teradose 4D [facility]: [employer] RADIATION DOSE: CT Rad equipment meets quality standard of care and radiation dose reduction techniq ues were employed. CTDIvol: 27.6 mGy. DLP: 541 mGy-cm. mGy. LIMITATIONS: None. FINDINGS: ALIGNMENT: Anatomic. MINERALIZATION: Normal. VERTEBRAL BODIES: No fractures or dislocation. DISCS: Disc spaces are narrowed from C3-C7. Anterior and posterior osteophytes are present, most pro minently at C5-6 and C6-7. FACETS, LATERAL MASSES, POSTERIOR ELEMENTS: No fractures. No dislocation. No acute findings. HARDWARE: None in the spine. VISUALIZED RIBS: No fractures. LUNG APICES AND SOFT TISSUES: No significant or acute findings. OTHER: No other significant finding. IMPRESSION: Extensive degenerative disc disease and spondylosis. No acute finding. TECHNICAL DOCUMENTATION: JOB ID: [id number] Quality ID # [id number]: Final reports with documentation of one or more dose reduction techniques (e.g., Au tomated exposure control, adjustment of the mA and/or kV according to patient size, use of iterative reconstruction technique) 2010 [employer]- All Rights Reserved Reading location - IP/workstation name: [email or web address]
[2018-09-02 18:26] LABS: ABSOLUTE BASOPHILS # (AUTO) 0.1 10^3/uL (0.0-0.2); ABSOLUTE EOSINOPHILS # (AUTO) 0.3 10^3/uL (0.0-0.6); ABSOLUTE LYMPHOCYTES (AUTO) 4.1 10^3/uL (0.5-4.7); ABSOLUTE MONOCYTES (AUTO) 0.8 10^3/uL (0.1-1.4); ABSOLUTE NEUT (AUTO) 4.9 10^3/uL (1.7-8.2); BASOPHILS % (AUTO) 0.9 % (0-2); HEMATOCRIT 45.1 % (37.9-51.0); HEMOGLOBIN 14.9 g/dL (13.5-17.0); LYMPHOCYTES % (AUTO) 40.4 % (13-45); MEAN CORPUSCULAR HEMOGLOBIN 28.9 pg (27.0-33.4); MEAN CORPUSCULAR VOLUME 87 fl (80-97); MONOCYTES % (AUTO) 7.8 % (3-13); PLATELET COUNT 238 10^3/uL (150-450); RED BLOOD COUNT 5.17 10^6/uL (4.35-5.55); SEGMENTED NEUTROPHILS % (AUTO) 47.9 % (42-78); TOTAL CELLS COUNTED % (AUTO) 100 %; WHITE BLOOD COUNT 10.2 10^3/uL (4.0-10.5)
--- NOTE | 2018-09-02 18:39 | EKG REPORT ---
SEVERITY:- ABNORMAL ECG - SINUS RHYTHM FIRST DEGREE AV BLOCK LEFT VENTRICULAR HYPERTROPHY : Confirmed by: Chidi Orozco MD 02-Sep-2018 18:39:20
[2018-09-02 19:01] LABS: INTERNATIONAL RATION (INR) 2.36; PROTHROMBIN TIME 26.9 SEC (11.4-15.4)
[2018-09-02 19:02] LABS: PARTIAL THROMBOPLASTIN TIME 34.4 SEC (23.5-35.8)
[2018-09-02 19:28] LABS: ALANINE AMINOTRANSFERASE 57 U/L (21-72); ALBUMIN 3.9 g/dL (3.5-5.0); ALKALINE PHOSPHATASE 66 U/L (38-126); ANION GAP 9 (5-19); ASPARTATE AMINO TRANSFERASE 53 U/L (17-59); BILIRUBIN,DIRECT 0.3 mg/dL (0.0-0.4); BILIRUBIN,TOTAL 0.6 mg/dL (0.2-1.3); BLOOD UREA NITROGEN 18 mg/dL (7-20); CALCIUM 9.4 mg/dL (8.4-10.2); CARBON DIOXIDE 30 mmol/L (22-30); CHLORIDE 103 mmol/L (98-107); CREATINE KINASE 52 U/L (55-170); GLUCOSE 81 mg/dL (75-110); POTASSIUM 4.2 mmol/L (3.6-5.0); SODIUM 142.4 mmol/L (137-145); TOTAL PROTEIN 6.8 g/dL (6.3-8.2)
[2018-09-02 19:38] LABS: CREATINE KINASE MB 0.38 ng/mL (<4.55)
[2018-09-02 19:41] LABS: TROPONIN I < 0.012 ng/mL
[2018-09-02] MEDS ORDERED: MAGNESIUM HYDROXIDE SUSP 30 ML UDCUP PO PRN (21:28)
[2018-09-02] MEDS ORDERED: ONDANSETRON HCL INJ/PF 4 MG/2 ML SDV IV PRN (21:28)
[2018-09-02] MEDS ORDERED: MAG HYDROX/AL HYDROX/SIMETH SUSP 30 ML UDCUP PO PRN (21:28)
[2018-09-02] MEDS ORDERED: ONDANSETRON 4 MG TAB.RAPDIS PO PRN (21:28)
[2018-09-02] MEDS ORDERED: DIAZEPAM INJ 10 MG/2 ML DISP.SYRIN IV ONE (22:34)
[2018-09-02] MEDS: FAMOTIDINE 20 MG TABLET PO SCH (22:39)
--- NOTE | 2018-09-02 23:48 | RADIOLOGY REPORT (SQ) ---
EXAM DESCRIPTION: MR BRAIN WITHOUT IV CONTRAST COMPLETED DATE/TME: 09/02/2018 00:00 CLINICAL HISTORY: 58 years, Male, frequent falls with episodic confusion COMPARISON: CT brain 10/20/2015. TECHNIQUE: 288 Images stored on PACS. LIMITATIONS: None. FINDINGS: Sagittal midline anatomic structures demonstrate an unremarkable appearance to the pituitary and suprasellar regions. The globes are intact. Paranasal sinuses and mastoid air cells are unremarkable. Normal flow void in visualized intracranial vessels. The visualized cranial nerve complex these are unremarkable. There is no intra or extra-axial hemorrhage. Diffusion-weighted images are normal, without evidence for acute infarct. No mass or midline shift. Mild diffuse atrophy. A few foci of increased FLAIR/T2 white matter signal in the periventricular regions likely relating to sequelae of small vessel ischemic change. IMPRESSION: Negative for acute intracranial abnormality. Mild diffuse atrophy and minor small vessel ischemic change. copyright 2010 [employer]- All Rights Reserved
--- NOTE | 2018-09-03 00:34 | RADIOLOGY REPORT (SQ) ---
EXAM DESCRIPTION: MR BRAIN ANGIOGRAPHY WITHOUT IV CONTRAST COMPLETED DATE/TME: 09/02/2018 00:00 CLINICAL HISTORY: 58 years, Male, frequent falls with episodic confusion COMPARISON: Standard MR brain from today's date TECHNIQUE: 373 Images stored on PACS. Axial images were obtained with 3-D [id number] images and reconstructions. LIMITATIONS: None. FINDINGS: The vertebral basilar system is unremarkable. Negative for basilar tip aneurysm. The petrous and remaining intracranial portions of the internal carotid arteries are widely patent and unremarkable. No MRA evidence for focal stenosis, vascular encasement, or displacement. No MRA evidence for aneurysm or arteriovenous malformation. [place] is intact and unremarkable. IMPRESSION: Unremarkable MRA brain copyright 2010 [employer]- All Rights Reserved
[2018-09-03] MEDS: RINGERS SOLUTION,LACTATED 1,000 ML IV PRN ×2 (01:47→05:57)
[2018-09-03 06:12] LABS: APPEARANCE,URINE CLEAR; BILIRUBIN,URINE NEGATIVE (NEGATIVE); COLOR,URINE YELLOW; GLUCOSE, URINE >=500 mg/dL (NEGATIVE); KETONES,URINE NEGATIVE (NEGATIVE); LEUKOCYTE ESTERASE,URINE NEGATIVE (NEGATIVE); NITRITE,URINE NEGATIVE (NEGATIVE); PROTEIN,URINE NEGATIVE (NEGATIVE); URINE SPECIFIC GRAVITY 1.025; UROBILINOGEN,URINE NEGATIVE mg/dL (<2.0)
[2018-09-03 06:23] LABS: ABSOLUTE EOSINOPHILS # (AUTO) 0.3 10^3/uL (0.0-0.6); ABSOLUTE LYMPHOCYTES (AUTO) 2.7 10^3/uL (0.5-4.7); ABSOLUTE MONOCYTES (AUTO) 0.6 10^3/uL (0.1-1.4); ABSOLUTE NEUT (AUTO) 3.8 10^3/uL (1.7-8.2); BASOPHILS % (AUTO) 0.4 % (0-2); EOSINOPHILS % (AUTO) 4.1 % (0-6); HEMATOCRIT 39.6 % (37.9-51.0); HEMOGLOBIN 13.1 g/dL (13.5-17.0); LYMPHOCYTES % (AUTO) 36.1 % (13-45); MEAN CORPUSCULAR HEMOGLOBIN 28.6 pg (27.0-33.4); MEAN CORPUSCULAR HGB CONC 33.2 g/dL (32.0-36.0); MEAN CORPUSCULAR VOLUME 86 fl (80-97); MONOCYTES % (AUTO) 8.2 % (3-13); PLATELET COUNT 165 10^3/uL (150-450); RED BLOOD COUNT 4.59 10^6/uL (4.35-5.55); RED CELL DISTRIBUTION WIDTH 15.1 % (11.5-14.0); SEGMENTED NEUTROPHILS % (AUTO) 51.2 % (42-78); TOTAL CELLS COUNTED % (AUTO) 100 %; WHITE BLOOD COUNT 7.4 10^3/uL (4.0-10.5)
[2018-09-03 06:26] LABS: URINE AMPHETAMINES SCREEN NEGATIVE; URINE BARBITURATES SCREEN NEGATIVE; URINE COCAINE SCREEN NEGATIVE; URINE MARIJUANA (THC) SCREEN NEGATIVE; URINE PHENCYCLIDINE SCREEN NEGATIVE
[2018-09-03 06:28] LABS: URINE METHADONE SCREEN NEGATIVE
[2018-09-03 06:40] LABS: URINE BENZODIAZEPINES SCREEN UNCONFIRMED POSITIVE
[2018-09-03 06:41] LABS: ANION GAP 9 (5-19); BLOOD UREA NITROGEN 16 mg/dL (7-20); CALCIUM 8.9 mg/dL (8.4-10.2); CARBON DIOXIDE 29 mmol/L (22-30); CHLORIDE 103 mmol/L (98-107); CHOLESTEROL 95.58 mg/dL (0-200); POTASSIUM 3.7 mmol/L (3.6-5.0); SODIUM 140.6 mmol/L (137-145); TRIGLYCERIDES 102 mg/dL (<150)
[2018-09-03 06:52] LABS: DIRECT LDL 60 mg/dL (<100)
[2018-09-03 06:57] LABS: FREE T3 3.03 pg/mL (2.77-5.27)
[2018-09-03 07:01] LABS: GLUCOSE 64 mg/dL (75-110)
[2018-09-03 07:10] LABS: THYROID STIMULATING HORMONE 0.6 uIU/mL (0.47-4.68)
[2018-09-03] MEDS ORDERED: DEXTROSE 50%-WATER 25 GM/50 ML DISP.SYRIN IV PRN ×4 (11:04→15:30)
[2018-09-03] MEDS ORDERED: DEXTROSE 40% GEL 15 GM TUBE PO PRN ×4 (11:04→15:30)
[2018-09-03] MEDS ORDERED: GLUCAGON,HUMAN RECOMB 1 MG INJ IM PRN ×2 (11:04→15:30)
[2018-09-03] MEDS: ASPIRIN 81 MG TABLET, ENT COATED PO SCH (11:10)
[2018-09-03] MEDS: FAMOTIDINE 20 MG TABLET PO SCH (11:10)
[2018-09-03] MEDS: DOCUSATE SODIUM 100 MG CAPSULE PO SCH ×2 (11:10→18:33)
[2018-09-03] MEDS: METOPROLOL SUCCINATE 50 MG TAB.SR.24H PO SCH (11:19)
[2018-09-03] MEDS ORDERED: RIVAROXABAN 10 MG TABLET PO SCH (12:00)
--- NOTE | 2018-09-03 12:23 | PDOC H&P ---
History of Present Illness Admission Date/PCP: 09/02/18 20:41 SOFI HAYS MD Patient complains of: Multiple falls History of Present Illness: LUIZ PACHECO is a 58 year old male who presented to the emergency room with a 4-day history of frequent falls. Patient states that he has fallen several times over the last 4 days without memory of the individual falls or the circumstances that caused the fall. He remembers being on the floor and regaining his balance and ability to stand and walk. He has excellent memory for the intervals in between the fall episodes, but his indicates that he has brief episodes of significant confusion or "flashback" type symptoms. Additionally he has noted some weakness of his right upper and lower extremity most prominently in the right lower extremity and some slurring of his speech has been noted both by the patient and his in the form of dysarthria. He further admits that he is being treated for numerous medical problems but recently was started on lithium for treatment of his bipolar disorder. He has PTSD and normally stays at home but 4 days ago he went to the [employer] to get a haircut and he was acting strangely in the [employer] shop and his was called to come and get him. This was the onset of the patient's current difficulty but he is a poor historian and his could only provide limited information. He further admits that he generally feels a little weak compared to his normal s trength and the weakness is primarily on the right side of his body. He denies prior similar episodes and has not identified any aggravating or ameliorating factors for his current problems. In the emergency room he was found to have a negative CT scan but was noted to have a lithium level of 1.3 which is slightly elevated above the normal range. With these findings the patient was admitted for further evaluation and treatment. Past Medical History Cardiac Medical History: Reports: Coronary Artery Disease, Hypertension, Pulmonary Embolism Denies: Atrial Fibrillation, Myocardial Infarction Pulmonary Medical History: Denies: Asthma, Bronchitis, Chronic Obstructive Pulmonary Disease (COPD), Pneumonia EENT Medical History: Reports: None Neurological Medical History: Denies: Hemorrhagic CVA, Ischemic CVA, Multiple Sclerosis, Seizures Endocrine Medical History: Reports: Diabetes Mellitus Type 2, Obesity Denies: Diabetes Mellitus Type 1, Hyperthyroidism, Hypothyroidism Renal/ Medical History: Denies: Chronic Kidney Disease, Nephrolithiasis Malignancy Medical History: Reports: None GI Medical History: Reports: Hiatal Hernia Denies: Cirrhosis, Hepatitis Musculoskeltal Medical History: Reports: Arthritis - generalized osteoarthritis Denies: Gout Skin Medical History: Denies: Eczema, Psoriasis Psychiatric Medical History: Reports: Bipolar Disorder, Depression, Post Traumatic Stress Disorder Denies: Alcohol Dependency, Substance Abuse, Tobacco Dependency Traumatic Medical History: Reports: None Hematology: Denies: Anemia, Bleeding Tendencies Infectious Medical History: Reports: None Past Surgical History Past Surgical History: Reports: Orthopedic Surgery - R foot Social History Information Source: Patient Lives with: Spouse/Significant other Smoking Status: Never Smoker Frequency of Alcohol Use: None Hx Recreational Drug Use: No Drugs: None Hx Prescription Drug Abuse: No - Advance Directive Resuscitation Status: Full Code Surrogate healthcare decision maker:: Spouse Family History Family History: Hypertension. denies: CAD, DM, Malignancy Parental Family History Reviewed: Yes Children Family History Reviewed: No Sibling(s) Family History Reviewed.: Yes Medication/Allergy Home Medications: Bupropion HCl [Wellbutrin Sr 150 mg Tablet] 150 mg PO DAILY 09/02/18 Dexlansoprazole [Dexilant 60 mg Capsule] 60 mg PO DAILY 09/02/18 Empagliflozin [Jardiance] 10 mg PO DAILY 09/02/18 Hydromorphone HCl [Dilaudid] 4 mg PO Q12 09/02/18 Insulin Glargine,Hum.rec.anlog [Basaglar Kwikpen U-100] 20 units SQ DAILY 09/02/18 Lubiprostone [Amitiza 24 Mcg Capsule] 24 mcg PO BID 09/02/18 RX: Aspirin [Ecotrin 81 mg EC Tablet] 81 mg PO DAILY 09/02/18 RX: Atorvastatin Calcium [Lipitor 40 mg Tablet] 40 mg PO DAILY 09/02/18 RX: Baclofen [Baclofen 10 mg Tablet] 10 mg PO Q8HP PRN 09/02/18 RX: Clindamycin Phosphate 1 applic TOP BID 09/02/18 RX: Clonazepam [Klonopin] 0.5 mg PO Q12HP PRN 09/02/18 RX: Doxycycline Hyclate [Vibramycin] 50 mg PO BID 09/02/18 RX: Fexofenadine HCl [Allergy Relief] 180 mg PO DAILY 09/02/18 RX: Furosemide [Lasix 40 mg Tablet] 40 mg PO DAILY 09/02/18 RX: Lisinopril [Prinivil 2.5 mg Tablet] 2.5 mg PO DAILY 09/02/18 RX: Mellen Carbonate 300 mg PO DAILY 09/02/18 RX: Meclizine HCl [Motion Sickness Relief] 25 mg PO TIDP PRN 09/02/18 RX: Metformin HCl [Glucophage] 1,000 mg PO BID 09/02/18 RX: Metoprolol Succinate [Toprol XL 100 mg Tablet] 100 mg PO DAILY 09/02/18 RX: Naldemedine Tosylate [Symproic] 0.2 mg PO DAILY 09/02/18 RX: Oxycodone HCl [Oxycodone HCl ER] 10 mg PO Q12 09/02/18 RX: Pregabalin [Lyrica] 150 mg PO Q12 09/02/18 RX: Quetiapine Fumarate [Seroquel 25 mg Tablet] 25 mg PO Q8HP PRN 09/02/18 RX: Quetiapine Fumarate [Seroquel] 300 mg PO QHS 09/02/18 RX: Ranitidine HCl [Zantac 150 mg Tablet] 150 mg PO BID 09/02/18 RX: Tamsulosin HCl [Flomax 0.4 mg Cap.sr] 0.4 mg PO DAILY 09/02/18 Rivaroxaban [Xarelto] 20 mg PO DAILY 09/02/18 Sildenafil Citrate [Viagra] 100 mg PO .1 HR PRIOR TO SEX 09/02/18 Sitagliptin Phosphate [Januvia] 100 mg PO DAILY 09/02/18 Tizanidine HCl [Zanaflex 4 mg Tablet] 4 mg PO Q8 09/02/18 Allergies/Adverse Reactions: metoclopramide HCl [From Reglan] Allergy (Severe, Verified 09/02/18 15:07) Tachycardia adhesive [Adhesive] Allergy (Intermediate, Verified 09/02/18 15:07) BLISTER Review of Systems Constitutional: PRESENT: as per HPI, fatigue, weakness. ABSENT: chills, fever(s) Eyes: ABSENT: visual disturbances, other - IP Ears: ABSENT: hearing changes, other - Ear pain Nose, Mouth, and Throat: ABSENT: mouth pain, sore throat Cardiovascular: ABSENT: chest pain, dyspnea on exertion, edema, orthropnea, palpitations Respiratory: ABSENT: cough, dyspnea Gastrointestinal: ABSENT: abdominal pain, constipation, diarrhea, nausea, vomiting Genitourinary: ABSENT: dysuria, hematuria Musculoskeletal: ABSENT: deformity, joint swelling Integumentary: ABSENT: pruritus, rash Neurological: PRESENT: as per HPI, abnormal gait - Per 's observance: seems to list to the right and patient admits to right-sided weakness, abnormal speech - Per 's observance: Speech is slightly slurred or garbled, confusion - Episodes of flashbacks/confusion observed by , frequent falls - At least 5 falls occurring over the last 4 days, memory loss - No memory for his recent series of falls or events leading up to them, weakness - Generalized but more prominent on the right. ABSENT: abnormal movements, convulsions, dizziness, focal weakness, paresthesias, tremor(s), vertigo Psychiatric: PRESENT: depression, other - Flashbacks observed by his . ABSENT: anxiety, hallucinations Endocrine: ABSENT: cold intolerance, heat intolerance Hematologic/Lymphatic: ABSENT: easy bleeding, easy bruising Physical Exam Vital Signs: Temp Pulse Resp BP Pulse Ox 99.0 F 83 12 127/93 H 98 09/02/18 15:39 09/02/18 18:00 09/02/18 18:06 09/02/18 18:06 09/02/18 18:06 Intake & Output 08/31/18 09/01/18 09/02/18 23:59 23:59 23:59 Weight 109.8 kg General appearance: PRESENT: no acute distress, cooperative, obese Head exam: PRESENT: atraumatic, normocephalic Eye exam: PRESENT: conjunctiva pink, EOMI. ABSENT: scleral icterus Ear exam: PRESENT: normal external ear exam. ABSENT: bleeding, drainage Mouth exam: PRESENT: dry mucosa, neck supple Neck exam: ABSENT: thyromegaly, tracheal deviation Respiratory exam: PRESENT: clear to auscultation star, symmetrical, unlabored Cardiovascular exam: PRESENT: RRR. ABSENT: clicks, gallop, rubs Pulses: PRESENT: normal radial pulses, normal dorsalis pedis pul Vascular exam: PRESENT: normal capillary refill. ABSENT: pallor GI/Abdominal exam: PRESENT: normal bowel sounds, soft Rectal exam: PRESENT: deferred Extremities exam: ABSENT: joint swelling, pedal edema Musculoskeletal exam: PRESENT: full ROM, normal inspection Neurological exam: PRESENT: alert, oriented to person, oriented to place, oriented to time, oriented to situation, CN II-XII grossly intact. ABSENT: motor sensory deficit Psychiatric exam: PRESENT: appropriate affect, normal mood, other - Loss of memory for acute events and brief episodic confusion noted Skin exam: PRESENT: dry, intact, warm. ABSENT: jaundice, rash, urticaria Results Laboratory Results: 09/02/18 18:00 09/02/18 18:49 09/02/18 09/02/18 09/02/18 18:00 18:00 18:49 WBC 10.2 RBC 5.17 Hgb 14.9 Hct 45.1 MCV 87 MCH 28.9 MCHC 33.0 RDW 15.0 H Plt Count 238 Seg Neutrophils % 47.9 Lymphocytes % 40.4 Monocytes % 7.8 Eosinophils % 3.0 Basophils % 0.9 Absolute Neutrophils 4.9 Absolute Lymphocytes 4.1 Absolute Monocytes 0.8 Absolute Eosinophils 0.3 Absolute Basophils 0.1 Sodium Cancelled 142.4 Potassium Cancelled 4.2 Chloride Cancelled 103 Carbon Dioxide Cancelled 30 Anion Gap Cancelled 9 BUN Cancelled 18 Creatinine Cancelled 1.36 H Est GFR ( Amer) Cancelled > 60 Est GFR (Non-Af Amer) Cancelled 53 L Glucose Cancelled 81 Calcium Cancelled 9.4 Total Bilirubin Cancelled 0.6 AST Cancelled 53 ALT Cancelled 57 Alkaline Phosphatase Cancelled 66 Total Protein Cancelled 6.8 Albumin Cancelled 3.9 09/02/18 09/02/18 09/02/18 18:00 18:00 18:49 Creatine Kinase Cancelled 52 L CK-MB (CK-2) Cancelled Troponin I Cancelled 09/02/18 18:49 Creatine Kinase CK-MB (CK-2) 0.38 Troponin I < 0.012 Impressions: Chest X-Ray 09/02/18 17:39 IMPRESSION: There appears to be a minimal left pleural effusion. Head CT 09/02/18 17:39 IMPRESSION: NORMAL BRAIN CT WITHOUT CONTRAST. EVIDENCE OF ACUTE STROKE: NO. Cervical Spine CT 09/02/18 17:41 IMPRESSION: Extensive degenerative disc disease and spondylosis. No acute finding. Assessment & Plan - Diagnosis (1) Frequent falls Is this a current diagnosis for this admission?: Yes Plan: Patient will be evaluated for frequent falls of uncertain etiology with a cardiology consultation by Dr. Arambula, with the concern that these may be syncopal episodes and may be related to his recent use of lithium. Additionally he will be on the cross tie turner and his electrolytes will be monitored on a regular basis. (2) Mellen toxicity Is this a current diagnosis for this admission?: Yes Plan: Patient's lithium will be held until it can be determined as to whether or not this may be part of his ongoing current problem. (3) General weakness Is this a current diagnosis for this admission?: Yes Plan: An MRI and MRA of the head and MRA of the neck will be obtained to evaluate for a possible infarction as the cause of his current problems further evaluation observation will be considered as appropriate. (4) Essential hypertension Is this a current diagnosis for this admission?: Yes Plan: Patient's current antihypertensive medications will be continued as appropriate with adjustments made as per recommendation of Dr. Arambula. (5) DM w/o complication type II Qualifiers: Diabetes mellitus assistant terminal manager insulin use: unspecified assistant terminal manager insulin use status Qualified Code(s): E11.9 - Type 2 diabetes mellitus without complications Is this a current diagnosis for this admission?: Yes Plan: Patient be continued on his current diabetic regimen and diabetic diet with sliding scale insulin on before meals and at bedtime basis. Additionally he will have his diabetic regiment modified as appropriate for excellent therapy. Hemoglobin A1c will be obtained to evaluate his prehospital therapeutic efficacy. (6) Obesity (BMI 30.0-34.9) Is this a current diagnosis for this admission?: Yes Plan: Patient will be encouraged to follow a diabetic diet closely and limit his calorie intake to help in weight reduction and better control of his diabetes as well as improvement of his overall health including his cardiac health. A dietary consult will be obtained as needed to provide direction for lifestyle and diet changes for the patient. - Time Time Spent: 30 to 50 Minutes Critical Time spent with patient: Less than 15 minutes Medications reviewed and adjusted accordingly: Yes Anticipated discharge: Home - Inpatient Certification Based on my medical assessment, after consideration of the patient's comorbidities, presenting symptoms, or acuity I expect that the services needed warrant INPATIENT care.: Yes I certify that my determination is in accordance with my understanding of Medicare's requirements for reasonable and necessary INPATIENT services [42 CFR 412.3e].: Yes Medical Necessity: Significant Comorbidiites Make Outpatient Treatment Too Risky, Need Close Monitoring Due to Risk of Patient Decompensation, Need For Continuous Telemetry Monitoring, Need for Neurological Checks, Risk of Complication if Not Cared For in Hospital
--- NOTE | 2018-09-03 12:30 | PDOC PROGRESS REPORT ---
Subjective Progress Note for:: 09/03/18 Subjective:: No acute events overnight. Has not had recurrence of his fall. Sensation patient is sitting but he had multiple falls and insisting that they were due to fact that he was weak on the right side and he had been tripping. He denies having any palpitation, chest pain, lightheadedness prior to falls, no loss of consciousness, convulsions, confusion, post falls. Has extensive history of CAD, A. fib and has reveal LINQ Insertable Upper Cutter Machine planted on December [address] Jese Blair at [facility] but does not report any other arrhythmias except for A. fib. PTSD, chronic back pain secondary to severe DJD. Followed by his PCP, terrazzo helper, psychiatrist, pain management physician. He is multiple psychotropic medications multiple medications such as baclofen, tizanidine, quetiapine, clonazepam, meclizine, Amitiza, naldemedine, oxycodone, pregabalin, sildenafil and lithium was added to his regimen about 2 weeks ago but he says he actually started taking it about a week ago which is coinciding with his recurrent falls. Reason For Visit: GENERAL WEAKNESS Physical Exam Vital Signs: Temp Pulse Resp BP Pulse Ox 98.3 F 80 16 122/78 97 09/03/18 11:13 09/03/18 11:13 09/03/18 11:13 09/03/18 11:13 09/03/18 11:13 Intake & Output 09/02/18 09/03/18 09/04/18 06:59 06:59 06:59 Intake Total 1222 1000 Output Total 0 Balance 1222 1000 Weight 107.3 kg General appearance: PRESENT: no acute distress, well-developed, well-nourished Head exam: PRESENT: atraumatic, normocephalic Neck exam: ABSENT: carotid bruit, JVD, lymphadenopathy, thyromegaly Respiratory exam: PRESENT: clear to auscultation star. ABSENT: rales, rhonchi, wheezes Cardiovascular exam: PRESENT: RRR. ABSENT: diastolic murmur, rubs, systolic murmur Pulses: PRESENT: normal dorsalis pedis pul GI/Abdominal exam: PRESENT: normal bowel sounds, soft. ABSENT: distended, guarding, mass, organolmegaly, rebound, tenderness Extremities exam: PRESENT: full ROM. ABSENT: calf tenderness, clubbing, pedal edema Neurological exam: PRESENT: alert, awake, oriented to person, oriented to place, oriented to time, oriented to situation, CN II-XII grossly intact. ABSENT: motor sensory deficit Psychiatric exam: PRESENT: appropriate affect, normal mood. ABSENT: homicidal ideation, suicidal ideation Skin exam: PRESENT: dry, intact, warm. ABSENT: cyanosis, rash Results Laboratory Results: 09/03/18 05:09 09/03/18 05:09 09/02/18 09/02/18 09/02/18 18:00 18:00 18:49 WBC 10.2 RBC 5.17 Hgb 14.9 Hct 45.1 MCV 87 MCH 28.9 MCHC 33.0 RDW 15.0 H Plt Count 238 Seg Neutrophils % 47.9 Lymphocytes % 40.4 Monocytes % 7.8 Eosinophils % 3.0 Basophils % 0.9 Absolute Neutrophils 4.9 Absolute Lymphocytes 4.1 Absolute Monocytes 0.8 Absolute Eosinophils 0.3 Absolute Basophils 0.1 Sodium Cancelled 142.4 Potassium Cancelled 4.2 Chloride Cancelled 103 Carbon Dioxide Cancelled 30 Anion Gap Cancelled 9 BUN Cancelled 18 Creatinine Cancelled 1.36 H Est GFR ( Amer) Cancelled > 60 Est GFR (Non-Af Amer) Cancelled 53 L Glucose Cancelled 81 Calcium Cancelled 9.4 Magnesium Total Bilirubin Cancelled 0.6 AST Cancelled 53 ALT Cancelled 57 Alkaline Phosphatase Cancelled 66 Total Protein Cancelled 6.8 Albumin Cancelled 3.9 Triglycerides Cholesterol LDL Cholesterol Direct VLDL Cholesterol HDL Cholesterol TSH Free T4 Free T3 pg/mL Urine Color Urine Appearance Urine pH Ur Specific [place] Urine Protein Urine Glucose (UA) Urine Ketones Urine Blood Urine Nitrite Ur Leukocyte Esterase Urine WBC (Auto) Urine RBC (Auto) 09/03/18 09/03/18 09/03/18 05:09 05:09 05:09 WBC 7.4 RBC 4.59 Hgb 13.1 L Hct 39.6 MCV 86 MCH 28.6 MCHC 33.2 RDW 15.1 H Plt Count 165 Seg Neutrophils % 51.2 Lymphocytes % 36.1 Monocytes % 8.2 Eosinophils % 4.1 Basophils % 0.4 Absolute Neutrophils 3.8 Absolute Lymphocytes 2.7 Absolute Monocytes 0.6 Absolute Eosinophils 0.3 Absolute Basophils 0.0 Sodium 140.6 Potassium 3.7 Chloride 103 Carbon Dioxide 29 Anion Gap 9 BUN 16 Creatinine 0.92 Est GFR ( Amer) > 60 Est GFR (Non-Af Amer) > 60 Glucose 64 L Calcium 8.9 Magnesium 1.3 L Total Bilirubin AST ALT Alkaline Phosphatase Total Protein Albumin Triglycerides 102 Cholesterol 95.58 LDL Cholesterol Direct 60 VLDL Cholesterol 20.0 HDL Cholesterol 27 L TSH 0.60 Free T4 1.00 Free T3 pg/mL 3.03 Urine Color Urine Appearance Urine pH Ur Specific [place] Urine Protein Urine Glucose (UA) Urine Ketones Urine Blood Urine Nitrite Ur Leukocyte Esterase Urine WBC (Auto) Urine RBC (Auto) 09/03/18 05:52 WBC RBC Hgb Hct MCV MCH MCHC RDW Plt Count Seg Neutrophils % Lymphocytes % Monocytes % Eosinophils % Basophils % Absolute Neutrophils Absolute Lymphocytes Absolute Monocytes Absolute Eosinophils Absolute Basophils Sodium Potassium Chloride Carbon Dioxide Anion Gap BUN Creatinine Est GFR ( Amer) Est GFR (Non-Af Amer) Glucose Calcium Magnesium Total Bilirubin AST ALT Alkaline Phosphatase Total Protein Albumin Triglycerides Cholesterol LDL Cholesterol Direct VLDL Cholesterol HDL Cholesterol TSH Free T4 Free T3 pg/mL Urine Color YELLOW Urine Appearance CLEAR Urine pH 7.0 Ur Specific [place] 1.025 Urine Protein NEGATIVE Urine Glucose (UA) >=500 H Urine Ketones NEGATIVE Urine Blood NEGATIVE Urine Nitrite NEGATIVE Ur Leukocyte Esterase NEGATIVE Urine WBC (Auto) 0 Urine RBC (Auto) 0 09/02/18 09/02/18 09/02/18 18:00 18:00 18:49 Creatine Kinase Cancelled 52 L CK-MB (CK-2) Cancelled Troponin I Cancelled 09/02/18 18:49 Creatine Kinase CK-MB (CK-2) 0.38 Troponin I < 0.012 Impressions: Brain MRI with MRA 09/02/18 00:00 IMPRESSION: Unremarkable MRA brain copyright 2010 [employer]- All Rights Reserved Head MRI 09/02/18 00:00 IMPRESSION: Negative for acute intracranial abnormality. Mild diffuse atrophy and minor small vessel ischemic change. copyright 2010 [employer]- All Rights Reserved Chest X-Ray 09/02/18 17:39 IMPRESSION: There appears to be a minimal left pleural effusion. Head CT 09/02/18 17:39 IMPRESSION: NORMAL BRAIN CT WITHOUT CONTRAST. EVIDENCE OF ACUTE STROKE: NO. Cervical Spine CT 09/02/18 17:41 IMPRESSION: Extensive degenerative disc disease and spondylosis. No acute finding. Assessment & Plan - Diagnosis (1) Frequent falls Is this a current diagnosis for this admission?: Yes Plan: Has extensive medical history such as CAD, A. fib and has Reveal LINQ Insertable Upper Cutter Machine planted on December [address] Jese Blair at [facility] but does not report any other arrhythmias except for A. fib. PTSD, chronic back pain secondary to severe DJD, Depression, Constipation. Followed several subspecialties such as PCP, terrazzo helper, psychiatrist, pain management physician. He is multiple psychotropic medications top of his diabetic and cardiac medications such as baclofen, tizanidine, quetiapine, clonazepam, meclizine, Amitiza, naldemedine, oxycodone, pregabalin, sildenafil. Deridder was added to his regimen about 2 weeks ago but he says he actually started taking it about a week ago which is coinciding with his recurrent falls. CT brain, MRI head, MRA head, EKG, troponins all negative for any acute abnor malities. Recurrent falls could be due to due to polypharmacy exacerbated by lithium in addition recently. Reveal LINQ Insertable Upper Cutter Machine was interrogated and I was informed that it did not record any arrhythmias since last time it was checked. Pending 2D echo, carotid Doppler. Hold psychotropic meds, hold lithium, continue PT OT ST, statin, antiplatelet. Medical records from [facility] regarding the reason for LINQ insertable supervisor shaving and splitting. (2) HTN (hypertension) Is this a current diagnosis for this admission?: No (3) Atrial fibrillation Qualifiers: Atrial fibrillation type: chronic Qualified Code(s): I48.2 - Chronic atrial fibrillation Is this a current diagnosis for this admission?: No Plan: Rate controlled. Continue beta-blockers. Xarelto. So patient about continuation of anticoagulation due to recurrent falls. (4) Hx pulmonary embolism Is this a current diagnosis for this admission?: No Plan: Continue Xarelto. (5) CAD (coronary artery disease) Is this a current diagnosis for this admission?: No Plan: Continue statins, beta-blockers, [place], antiplatelets. (6) PTSD (post-traumatic stress disorder) Is this a current diagnosis for this admission?: No Plan: Hold psychotropic meds at this time until the cause of recurrent falls are figured out. Start at a later time. (7) Depression Is this a current diagnosis for this admission?: Yes Plan: Restart home meds. (8) Dyslipidemia Is this a current diagnosis for this admission?: No Plan: Diet and lifestyle modification. Statins. (9) Chronic, continuous use of opioids Is this a current diagnosis for this admission?: No Plan: Restart home meds. Use minimal doses effective. (10) Chronic back pain Is this a current diagnosis for this admission?: No Plan: Restart home meds. (11) Constipation due to opioid therapy Is this a current diagnosis for this admission?: No Plan: Continue bowel regimen. Restart opiate receptor antagonist. (12) Diabetes mellitus Is this a current diagnosis for this admission?: No Plan: Diabetic diet, long-acting insulin, pre-meal insulin, sliding scale insulin. Insulin dosage as needed. Restart home meds upon discharge. (13) GERD (gastroesophageal reflux disease) Is this a current diagnosis for this admission?: No Plan: Continue PPIs. Encourage weight loss. (14) Obesity Is this a current diagnosis for this admission?: No Plan: Diet and lifestyle modification.
[2018-09-03] MEDS: INSULIN LISPRO 100 UNIT/ML 3 ML VIAL SUBCUT SCH ×2 (18:26→21:14)
[2018-09-03] MEDS: LUBIPROSTONE 24 MCG CAPSULE PO SCH (18:33)
[2018-09-03] MEDS: BUPROPION HCL 75 MG TABLET PO SCH (21:19)
[2018-09-03] MEDS ORDERED: ATORVASTATIN CALCIUM 40 MG TABLET PO SCH (22:00)
[2018-09-03] MEDS ORDERED: INSULIN GLARGINE,HUM.REC.ANLOG 300 UNIT/3 ML INSULN.PEN SUBCUT SCH (22:00)
[2018-09-04] MEDS ORDERED: LANSOPRAZOLE 30 MG TAB.RAP.DR PO SCH (06:00)
[2018-09-04 06:15] LABS: ABSOLUTE BASOPHILS # (AUTO) 0.1 10^3/uL (0.0-0.2); ABSOLUTE EOSINOPHILS # (AUTO) 0.2 10^3/uL (0.0-0.6); ABSOLUTE LYMPHOCYTES (AUTO) 3.3 10^3/uL (0.5-4.7); ABSOLUTE MONOCYTES (AUTO) 0.6 10^3/uL (0.1-1.4); ABSOLUTE NEUT (AUTO) 3.9 10^3/uL (1.7-8.2); BASOPHILS % (AUTO) 0.8 % (0-2); HEMATOCRIT 39.8 % (37.9-51.0); HEMOGLOBIN 13.2 g/dL (13.5-17.0); LYMPHOCYTES % (AUTO) 40.6 % (13-45); MEAN CORPUSCULAR HEMOGLOBIN 28.4 pg (27.0-33.4); MEAN CORPUSCULAR HGB CONC 33.2 g/dL (32.0-36.0); MEAN CORPUSCULAR VOLUME 86 fl (80-97); MONOCYTES % (AUTO) 7.6 % (3-13); PLATELET COUNT 174 10^3/uL (150-450); RED BLOOD COUNT 4.65 10^6/uL (4.35-5.55); RED CELL DISTRIBUTION WIDTH 14.9 % (11.5-14.0); TOTAL CELLS COUNTED % (AUTO) 100 %; WHITE BLOOD COUNT 8.1 10^3/uL (4.0-10.5)
[2018-09-04 06:42] LABS: ALANINE AMINOTRANSFERASE 65 U/L (21-72); ALBUMIN 3.4 g/dL (3.5-5.0); ALKALINE PHOSPHATASE 65 U/L (38-126); ANION GAP 8 (5-19); ASPARTATE AMINO TRANSFERASE 53 U/L (17-59); BILIRUBIN,DIRECT 0.2 mg/dL (0.0-0.4); BILIRUBIN,TOTAL 0.5 mg/dL (0.2-1.3); BLOOD UREA NITROGEN 11 mg/dL (7-20); CALCIUM 9.2 mg/dL (8.4-10.2); CARBON DIOXIDE 27 mmol/L (22-30); CHLORIDE 106 mmol/L (98-107); GLUCOSE 86 mg/dL (75-110); LITHIUM 0.6 mEq/L (0.6-1.2); POTASSIUM 3.6 mmol/L (3.6-5.0); SODIUM 140.6 mmol/L (137-145)
[2018-09-04] MEDS ORDERED: ONDANSETRON 4 MG TAB.RAPDIS PO PRN (08:30)
[2018-09-04] MEDS ORDERED: ONDANSETRON HCL INJ/PF 4 MG/2 ML SDV IV PRN (08:30)
[2018-09-04] MEDS: INSULIN LISPRO 100 UNIT/ML 3 ML VIAL SUBCUT SCH (08:43)
[2018-09-04] MEDS: ASPIRIN 81 MG TABLET, ENT COATED PO SCH (09:38)
[2018-09-04] MEDS: DOCUSATE SODIUM 100 MG CAPSULE PO SCH (09:38)
[2018-09-04] MEDS: LUBIPROSTONE 24 MCG CAPSULE PO SCH (09:38)
[2018-09-04] MEDS: METOPROLOL SUCCINATE 50 MG TAB.SR.24H PO SCH (09:38)
[2018-09-04] MEDS: BUPROPION HCL 75 MG TABLET PO SCH (09:38)
[2018-09-04] MEDS ORDERED: (PENDING PHARMACY ID) (Bupropion Hcl [Wellbutrin Sr 150 Mg Tablet] 150 MG) PO SCH (10:00)
[2018-09-04] MEDS ORDERED: NALDEMEDINE TOSYLATE 0.2 MG PO SCH (10:00)
[2018-09-04] MEDS ORDERED: TAMSULOSIN HCL 0.4 MG CAP.SR.24H PO SCH (10:00)
[2018-09-04 13:17] VITALS: BP 143/83
[2018-09-04] MEDS ORDERED: RIVAROXABAN 10 MG TABLET PO SCH (17:00)
--- NOTE | 2018-09-04 17:54 | PDOC DISCHARGE SUMMARY ---
General - Admit/Disc Date/PCP Admission Date/Primary Care Provider: 09/02/18 20:41 SOFI HAYS MD Discharge Date: 09/04/18 - Discharge Diagnosis (1) [place] toxicity Is this a current diagnosis for this admission?: Yes (2) Frequent falls Is this a current diagnosis for this admission?: Yes (3) HTN (hypertension) Is this a current diagnosis for this admission?: No (4) Atrial fibrillation Is this a current diagnosis for this admission?: No (5) Hx pulmonary embolism Is this a current diagnosis for this admission?: No (6) CAD (coronary artery disease) Is this a current diagnosis for this admission?: No (7) PTSD (post-traumatic stress disorder) Is this a current diagnosis for this admission?: No (8) Depression Is this a current diagnosis for this admission?: Yes (9) Dyslipidemia Is this a current diagnosis for this admission?: No (10) Chronic, continuous use of opioids Is this a current diagnosis for this admission?: No (11) Chronic back pain Is this a current diagnosis for this admission?: No (12) Constipation due to opioid therapy Is this a current diagnosis for this admission?: No (13) Diabetes mellitus Is this a current diagnosis for this admission?: No (14) GERD (gastroesophageal reflux disease) Is this a current diagnosis for this admission?: No (15) Obesity Is this a current diagnosis for this admission?: No - Additional Information Resuscitation Status: Full Code Discharge Diet: As Tolerated Discharge Activity: Activity As Tolerated, No Driving, No tub bath Home Medications: Aspirin [Ecotrin 81 mg EC Tablet] 81 mg PO DAILY 09/02/18 Atorvastatin Calcium [Lipitor 40 mg Tablet] 40 mg PO DAILY 09/02/18 Bupropion HCl [Wellbutrin Sr 150 mg Tablet] 150 mg PO DAILY 09/02/18 Clindamycin Phosphate 1 applic TOP BID 09/02/18 Doxycycline Hyclate [Vibramycin] 50 mg PO BID 09/02/18 Empagliflozin [Jardiance] 10 mg PO DAILY 09/02/18 Fexofenadine HCl [Allergy Relief] 180 mg PO DAILY 09/02/18 Furosemide [Lasix 40 mg Tablet] 40 mg PO DAILY 09/02/18 Insulin Glargine,Hum.rec.anlog [Basaglar Kwikpen U-100] 20 units SQ DAILY 09/02/18 Lisinopril [Prinivil 2.5 mg Tablet] 2.5 mg PO DAILY 09/02/18 Lubiprostone [Amitiza 24 Mcg Capsule] 24 mcg PO BID 09/02/18 Metformin HCl [Glucophage] 1,000 mg PO BID 09/02/18 Metoprolol Succinate [Toprol XL 100 mg Tablet] 100 mg PO DAILY 09/02/18 Naldemedine Tosylate [Symproic] 0.2 mg PO DAILY 09/02/18 Quetiapine Fumarate [Seroquel 25 mg Tablet] 25 mg PO Q8HP PRN 09/02/18 Quetiapine Fumarate [Seroquel] 300 mg PO QHS 09/02/18 Ranitidine HCl [Zantac 150 mg Tablet] 150 mg PO BID 09/02/18 Sildenafil Citrate [Viagra] 100 mg PO .1 HR PRIOR TO SEX 09/02/18 Sitagliptin Phosphate [Januvia] 100 mg PO DAILY 09/02/18 Tamsulosin HCl [Flomax 0.4 mg Cap.sr] 0.4 mg PO DAILY 09/02/18 History of Present Illness History of Present Illness: LUIZ PACHECO is a 58 year old male who presented to the emergency room with a 4-day history of frequent falls. Patient states that he has fallen several times over the last 4 days without memory of the individual falls or the circumstances that caused the fall. He remembers being on the floor and regaining his balance and ability to stand and walk. He has excellent memory for the intervals in between the fall episodes, but his indicates that he has brief episodes of significant confusion or "flashback" type symptoms. Additionally he has noted some weakness of his right upper and lower extremity most prominently in the right lower extremity and some slurring of his speech has been noted both by the patient and his in the form of dysarthria. He further admits that he is being treated for numerous medical problems but recently was started on lithium for treatment of his bipolar disorder. He has PTSD and normally stays at home but 4 days ago he went to the [employer] to get a haircut and he was acting strangely in the [employer] shop and his was called to come and get him. This was the onset of the patient's current difficulty but he is a poor historian and his could only provide limited information. He further admits that he generally feels a little weak compared to his normal strength and the weakness is primarily on the right side of his body. He denies prior similar episodes and has not identified any aggravating or ameliorating factors for his current problems. In the emergency room he was found to have a negative CT scan but was noted to have a lithium level of 1.3 which is slightly elevated above the normal range. With these findings the patient was admitted for further evaluation and treatment. No acute events overnight. Has not had recurrence of his fall. Sensation patient is sitting but he had multiple falls and insisting that they were due to fact that he was weak on the right side and he had been tripping. He denies having any palpitation, chest pain, lightheadedness prior to falls, no loss of consciousness, convulsions, confusion, post falls. Has extensive history of CAD, A. fib and has reveal [employer] planted on December [address] Jese Blair at [facility] but does not report any other arrhythmias except for A. fib. PTSD, chronic back pain secondary to severe DJD. Followed by his PCP, box gluer, psychiatrist, pain management physician. He is multiple psychotropic medications multiple medications such as baclofen, tizanidine, quetiapine, clonazepam, meclizine, Amitiza, naldemedine, oxycodone, pregabalin, sildenafil and lithium was added to his regimen about 2 weeks ago but he says he actually started taking it about a week ago which is coinciding with his recurrent falls. Hospital Course Hospital Course: (1) [place] toxicity Pt had borderline elevated lithium level on admission, but even at normal levels lithium could have contributed to his falls by interacting with numerous meds t hat he is taking, such as baclofen, tizanidine, quetiapine, clonazepam, meclizine, Amitiza, naldemedine, oxycodone, pregabalin, sildenafil on top of his diabetic,cardiac and HTN medications such as ranitidine aspirin, tamsulosin, Jardiance, atorvastatin, clindamycin, insulin, sildenafil, metoprolol, sitagliptin, doxycycline, furosemide, metformin, fexofenadine, lisinopril. [place] level was trended, and most of his meds were held. He did not have any recurrence of his fall or any focal neurological symptoms. Has extensive medical history such as CAD, A. fib and has Reve[employer] planted on December [address] Jese Blair at [facility] but does not report any other arrhythmias except for A. fib. PTSD, chronic back pain secondary to severe DJD, Depression, Constipation. Followed several subspecialties such as PCP, box gluer, psychiatrist, pain management physician. He is on multiple psychotropic medications such as baclofen, tizanidine, quetiapine, clonazepam, meclizine, Amitiza, naldemedine, oxycodone, pregabalin, sildenafil on top of his diabetic,cardiac and HTN medications such as ranitidine aspirin, tamsulosin, Jardiance, atorvastatin, clindamycin, insulin, sildenafil, metoprolol, sitagliptin, doxycycline, furosemide, metformin, fexofenadine, lisinopril. [place] was added to his regimen about 2 weeks ago but he says he actually started taking it about a week ago which is coinciding with his recurrent falls. CT brain, MRI head, MRA head, EKG, troponins all negative for any acute abnormalities. Reveal [employer] was interrogated and I was informed that it did not record any arrhythmias since last time it was checked. Physcial therapy consulted and he recommended outpatient physical therapy. He was able to walk around the hallways unassisted without any problems. No recurrence of the fall while inpatient. Was extensively counseled about following up with his doctors to reconciliate his medications. Appointment was made for him to see Dr. Orozco on 09/15/2018. Diego 09/17/2018 and PCP. Unfortunately his psychiatrist lives in [place] and he is seen through telemetry medicine. His psychiatrist is being arranged by [facility]. Was told by the nursing staff that we cannot make [facility] appointments. He was asked to hold his Xarelto until seen by Dr. Cortez. He was asked to hold his baclofen, tizanidine, clonazepam, oxycodone and hydromorphone untill reevaluated by his pain management doctor. He was asked to hold his psychotropic medications but he stated he could not be off of them because of his PTSD. (2) Frequent falls As per problem #1 (3) HTN (hypertension) Restarted on home meds. Normotensive. (4) Atrial fibrillation Rate controlled. Continue beta-blockers. Xarelto held due to recurrent falls. Appointment was made for Dr. Cortez to decision for continuation of his Xarelto. (5) Hx pulmonary embolism Started on Xarelto by Dr. Cortez for his PE. Appointment was made for Dr. Cortez to decision for continuation of his Xarelto. Xarelto was held on discharge. (6) CAD (coronary artery disease) Continued on statins, beta-blockers, [place], antiplatelets. (7) PTSD (post-traumatic stress disorder) Held psychotropic meds at this time until the cause of recurrent falls are figured out. Asked to follow-up with his psychiatrist for reconsideration of his meds. (8) Depression Restart home meds. (9) Dyslipidemia Diet and lifestyle modification. Statins. (10) Chronic, continuous use of opioids Restart home meds. Use minimal doses effective. Was asked to hold his opioids and muscle relaxant until seen by his pain management. (11) Chronic back pain Restart home meds. Use minimum effective dose. (12) Constipation due to opioid therapy Continue bowel regimen. Restart opiate receptor antagonist. (13) Diabetes mellitus Diabetic diet, long-acting insulin, pre-meal insulin, sliding scale insulin. Adjust Insulin dosage as needed. Restart home meds upon discharge. (14) GERD (gastroesophageal reflux disease) Continue PPIs. Encourage weight loss. (15) Obesity Diet and lifestyle modification. Physical Exam Vital Signs: Temp Pulse Resp BP Pulse Ox 98.2 F 75 18 143/83 H 96 09/04/18 13:16 09/04/18 13:16 09/04/18 13:16 09/04/18 13:16 09/04/18 13:16 Intake & Output 09/03/18 09/04/18 09/05/18 06:59 06:59 06:59 Intake Total 1222 1268 Output Total 0 Balance 1222 1268 Weight 107.3 kg 107.2 kg General appearance: PRESENT: no acute distress, well-developed, well-nourished Head exam: PRESENT: atraumatic, normocephalic Neck exam: ABSENT: carotid bruit, JVD, lymphadenopathy, thyromegaly Respiratory exam: PRESENT: clear to auscultation star. ABSENT: rales, rhonchi, wheezes Cardiovascular exam: PRESENT: RRR. ABSENT: diastolic murmur, rubs, systolic murmur GI/Abdominal exam: PRESENT: normal bowel sounds, soft. ABSENT: distended, guarding, mass, organolmegaly, rebound, tenderness Extremities exam: PRESENT: full ROM. ABSENT: calf tenderness, clubbing, pedal edema Neurological exam: PRESENT: alert, awake, oriented to person, oriented to place, oriented to time, oriented to situation, CN II-XII grossly intact. ABSENT: motor sensory deficit Psychiatric exam: PRESENT: appropriate affect, normal mood. ABSENT: homicidal ideation, suicidal ideation Skin exam: PRESENT: dry, intact, warm. ABSENT: cyanosis, rash Results Laboratory Results: 09/04/18 05:11 09/04/18 05:11 09/04/18 09/04/18 05:11 05:11 WBC 8.1 RBC 4.65 Hgb 13.2 L Hct 39.8 MCV 86 MCH 28.4 MCHC 33.2 RDW 14.9 H Plt Count 174 Seg Neutrophils % 48.0 Lymphocytes % 40.6 Monocytes % 7.6 Eosinophils % 3.0 Basophils % 0.8 Absolute Neutrophils 3.9 Absolute Lymphocytes 3.3 Absolute Monocytes 0.6 Absolute Eosinophils 0.2 Absolute Basophils 0.1 Sodium 140.6 Potassium 3.6 Chloride 106 Carbon Dioxide 27 Anion Gap 8 BUN 11 Creatinine 0.90 Est GFR ( Amer) > 60 Est GFR (Non-Af Amer) > 60 Glucose 86 Calcium 9.2 Magnesium 1.7 Total Bilirubin 0.5 AST 53 ALT 65 Alkaline Phosphatase 65 Total Protein 6.0 L Albumin 3.4 L 09/02/18 09/02/18 09/02/18 18:00 18:00 18:49 Creatine Kinase Cancelled 52 L CK-MB (CK-2) Cancelled Troponin I Cancelled 09/02/18 18:49 Creatine Kinase CK-MB (CK-2) 0.38 Troponin I < 0.012 Impressions: Brain MRI with MRA 09/02/18 00:00 IMPRESSION: Unremarkable MRA brain copyright 2010 [employer]- All Rights Reserved Head MRI 09/02/18 00:00 IMPRESSION: Negative for acute intracranial abnormality. Mild diffuse atrophy and minor small vessel ischemic change. copyright 2010 [employer]- All Rights Reserved Chest X-Ray 09/02/18 17:39 IMPRESSION: There appears to be a minimal left pleural effusion. Head CT 09/02/18 17:39 IMPRESSION: NORMAL BRAIN CT WITHOUT CONTRAST. EVIDENCE OF ACUTE STROKE: NO. Cervical Spine CT 09/02/18 17:41 IMPRESSION: Extensive degenerative disc disease and spondylosis. No acute finding. Qualifiers - * PATIENT BEING DISCHARGED WITH ANY OF THE FOLLOWING DIAGNOSIS: No
[2018-09-04] MEDS ORDERED: INSULIN GLARGINE,HUM.REC.ANLOG 300 UNIT/3 ML INSULN.PEN SUBCUT SCH (22:00)
== END 2018-09-04 14:02 | disposition home or self-care (01) | DRG 948 ==
LOC: ER 15:06 → EH 20:41 → 3W 09-03 00:10
PROVIDERS: ADMIT Emergency Medicine; ATTEND Emergency Medicine
DX: R53.1 Weakness (principal); T50.995A Adverse effect of other drugs, medicaments and biological substances, initial encounter; I48.2 Chronic atrial fibrillation; F43.10 Post-traumatic stress disorder, unspecified; E11.9 Type 2 diabetes mellitus without complications; F31.9 Bipolar disorder, unspecified; R47.1 Dysarthria and anarthria; I10 Essential (primary) hypertension; I25.10 Atherosclerotic heart disease of native coronary artery without angina pectoris; E66.9 Obesity, unspecified; K44.9 Diaphragmatic hernia without obstruction or gangrene; M19.90 Unspecified osteoarthritis, unspecified site; R26.9 Unspecified abnormalities of gait and mobility; R41.3 Other amnesia; M54.9 Dorsalgia, unspecified; G89.29 Other chronic pain; E78.5 Hyperlipidemia, unspecified; K59.03 Drug induced constipation; K21.9 Gastro-esophageal reflux disease without esophagitis; Z91.81 History of falling; Z86.711 Personal history of pulmonary embolism; Z82.49 Family history of ischemic heart disease and other diseases of the circulatory system; Z79.82 Long term (current) use of aspirin; Z79.4 Long term (current) use of insulin; Z79.899 Other long term (current) drug therapy; Z88.8 Allergy status to other drugs, medicaments and biological substances; Z91.048 Other nonmedicinal substance allergy status; Z95.818 Presence of other cardiac implants and grafts; Z79.891 Long term (current) use of opiate analgesic; Z68.33 Body mass index [BMI] 33.0-33.9, adult
CPT/HCPCS: 36415; 70450; 70544; 70551; 71045; 72125; 80048; 80053; 80061; 80178; 80307; 81001; 82550; 82553; 82962; 83036; 83735; 84439; 84443; 84481; 84484; 85025; 85610; 85730; 93005; 93010; 99285; J1815; J3360; J3490; J7120

== ENCOUNTER → 2018-10-15 | Outpatient (CLI) | payer MEDICARE, OTHER ==
[2018-10-15 16:22] LABS: CHOLESTEROL 129.79 mg/dL (0-200); TRIGLYCERIDES 85 mg/dL (<150)
[2018-10-15 16:33] LABS: DIRECT LDL 78 mg/dL (<100)
== END ==
LOC: OD 14:21
PROVIDERS: ATTEND Internal Medicine Cardiovascular Disease
DX: E78.00 Pure hypercholesterolemia, unspecified (principal); R07.89 Other chest pain
CPT/HCPCS: 36415; 80061

== ENCOUNTER → 2018-11-24 | Outpatient (CLI) | payer MEDICARE, OTHER ==
[2018-11-24 13:00] LABS: HEMATOCRIT 45.2 % (37.9-51.0); HEMOGLOBIN 14.7 g/dL (13.5-17.0); MEAN CORPUSCULAR HEMOGLOBIN 28.4 pg (27.0-33.4); MEAN CORPUSCULAR HGB CONC 32.5 g/dL (32.0-36.0); MEAN CORPUSCULAR VOLUME 87 fl (80-97); PLATELET COUNT 183 10^3/uL (150-450); RED BLOOD COUNT 5.17 10^6/uL (4.35-5.55); RED CELL DISTRIBUTION WIDTH 16.6 % (11.5-14.0); WHITE BLOOD COUNT 8.1 10^3/uL (4.0-10.5)
[2018-11-24 13:04] LABS: APPEARANCE,URINE CLEAR; BILIRUBIN,URINE NEGATIVE (NEGATIVE); COLOR,URINE YELLOW; GLUCOSE, URINE >=500 mg/dL (NEGATIVE); KETONES,URINE NEGATIVE (NEGATIVE); LEUKOCYTE ESTERASE,URINE NEGATIVE (NEGATIVE); NITRITE,URINE NEGATIVE (NEGATIVE); PROTEIN,URINE NEGATIVE (NEGATIVE); URINE SPECIFIC GRAVITY 1.029; UROBILINOGEN,URINE NEGATIVE mg/dL (<2.0)
[2018-11-24 13:16] LABS: ALANINE AMINOTRANSFERASE 97 U/L (21-72); ALBUMIN 3.9 g/dL (3.5-5.0); ALKALINE PHOSPHATASE 92 U/L (38-126); ANION GAP 13 (5-19); ASPARTATE AMINO TRANSFERASE 63 U/L (17-59); BILIRUBIN,DIRECT 0.3 mg/dL (0.0-0.4); BILIRUBIN,TOTAL 0.5 mg/dL (0.2-1.3); BLOOD UREA NITROGEN 17 mg/dL (7-20); CALCIUM 10.1 mg/dL (8.4-10.2); CARBON DIOXIDE 28 mmol/L (22-30); CHLORIDE 99 mmol/L (98-107); GLUCOSE 331 mg/dL (75-110); POTASSIUM 4.7 mmol/L (3.6-5.0); SODIUM 139.7 mmol/L (137-145); TOTAL PROTEIN 7.1 g/dL (6.3-8.2)
== END ==
LOC: OD 12:17
PROVIDERS: ATTEND Internal Medicine Cardiovascular Disease
DX: E83.52 Hypercalcemia (principal); I48.0 Paroxysmal atrial fibrillation; Z79.01 Long term (current) use of anticoagulants; Z79.899 Other long term (current) drug therapy
CPT/HCPCS: 36415; 80048; 80076; 81001; 82272; 83735; 85027; 85730

== ENCOUNTER → 2019-03-01 | Outpatient (CLI) | payer MEDICARE, OTHER ==
[2019-03-01 13:22] LABS: HEMATOCRIT 39.1 % (37.9-51.0); HEMOGLOBIN 13.2 g/dL (13.5-17.0); MEAN CORPUSCULAR HEMOGLOBIN 31.3 pg (27.0-33.4); MEAN CORPUSCULAR HGB CONC 33.6 g/dL (32.0-36.0); MEAN CORPUSCULAR VOLUME 93 fl (80-97); PLATELET COUNT 158 10^3/uL (150-450); RED CELL DISTRIBUTION WIDTH 15.6 % (11.5-14.0); WHITE BLOOD COUNT 4.7 10^3/uL (4.0-10.5)
[2019-03-01 13:37] LABS: APPEARANCE,URINE CLEAR; BILIRUBIN,URINE NEGATIVE (NEGATIVE); COLOR,URINE YELLOW; GLUCOSE, URINE >=500 mg/dL (NEGATIVE); KETONES,URINE NEGATIVE (NEGATIVE); LEUKOCYTE ESTERASE,URINE NEGATIVE (NEGATIVE); NITRITE,URINE NEGATIVE (NEGATIVE); PROTEIN,URINE NEGATIVE (NEGATIVE); URINE SPECIFIC GRAVITY 1.032; UROBILINOGEN,URINE NEGATIVE mg/dL (<2.0)
[2019-03-01 13:52] LABS: ALBUMIN 3.7 g/dL (3.5-5.0); ALKALINE PHOSPHATASE 92 U/L (38-126); ANION GAP 9 (5-19); ASPARTATE AMINO TRANSFERASE 54 U/L (17-59); BILIRUBIN,DIRECT 0.3 mg/dL (0.0-0.4); BILIRUBIN,TOTAL 0.4 mg/dL (0.2-1.3); BLOOD UREA NITROGEN 10 mg/dL (7-20); CALCIUM 9.6 mg/dL (8.4-10.2); CARBON DIOXIDE 29 mmol/L (22-30); CHLORIDE 103 mmol/L (98-107); GLUCOSE 261 mg/dL (75-110); POTASSIUM 4.4 mmol/L (3.6-5.0)
== END ==
LOC: OD 12:55
PROVIDERS: ATTEND Internal Medicine Cardiovascular Disease
DX: I48.0 Paroxysmal atrial fibrillation (principal); Z79.01 Long term (current) use of anticoagulants; Z79.899 Other long term (current) drug therapy
CPT/HCPCS: 36415; 80048; 80076; 81001; 82272; 85027; 85730

== ENCOUNTER → 2019-06-02 | Outpatient (CLI) | payer MEDICARE, OTHER ==
[2019-06-02 09:45] LABS: APPEARANCE,URINE CLEAR; BILIRUBIN,URINE NEGATIVE (NEGATIVE); COLOR,URINE YELLOW; GLUCOSE, URINE >=500 mg/dL (NEGATIVE); KETONES,URINE NEGATIVE (NEGATIVE); LEUKOCYTE ESTERASE,URINE NEGATIVE (NEGATIVE); NITRITE,URINE NEGATIVE (NEGATIVE); PROTEIN,URINE NEGATIVE (NEGATIVE); URINE SPECIFIC GRAVITY 1.027; UROBILINOGEN,URINE NEGATIVE mg/dL (<2.0)
[2019-06-02 10:05] LABS: HEMATOCRIT 43.9 % (37.9-51.0); HEMOGLOBIN 14.5 g/dL (13.5-17.0); MEAN CORPUSCULAR HEMOGLOBIN 29.5 pg (27.0-33.4); MEAN CORPUSCULAR HGB CONC 33.1 g/dL (32.0-36.0); MEAN CORPUSCULAR VOLUME 89 fl (80-97); PLATELET COUNT 196 10^3/uL (150-450); RED BLOOD COUNT 4.92 10^6/uL (4.35-5.55); RED CELL DISTRIBUTION WIDTH 14.8 % (11.5-14.0); WHITE BLOOD COUNT 6.9 10^3/uL (4.0-10.5)
[2019-06-02 10:29] LABS: ALBUMIN 3.9 g/dL (3.5-5.0); ALKALINE PHOSPHATASE 75 U/L (38-126); ANION GAP 13 (5-19); ASPARTATE AMINO TRANSFERASE 71 U/L (17-59); BILIRUBIN,DIRECT 0.1 mg/dL (0.0-0.4); BILIRUBIN,TOTAL 0.7 mg/dL (0.2-1.3); BLOOD UREA NITROGEN 18 mg/dL (7-20); CALCIUM 9.7 mg/dL (8.4-10.2); CARBON DIOXIDE 27 mmol/L (22-30); CHLORIDE 103 mmol/L (98-107); GLUCOSE 91 mg/dL (75-110); POTASSIUM 4.7 mmol/L (3.6-5.0); TOTAL PROTEIN 7.6 g/dL (6.3-8.2)
== END ==
LOC: OD 09:00
PROVIDERS: ATTEND Internal Medicine Cardiovascular Disease
DX: I48.0 Paroxysmal atrial fibrillation (principal); Z79.01 Long term (current) use of anticoagulants; Z79.899 Other long term (current) drug therapy
CPT/HCPCS: 36415; 80048; 80076; 81001; 82272; 85027; 85730

== ENCOUNTER → 2019-08-31 | Outpatient (CLI) | payer MEDICARE, OTHER ==
[2019-08-31 13:55] LABS: HEMATOCRIT 42.7 % (37.9-51.0); HEMOGLOBIN 14.4 g/dL (13.5-17.0); MEAN CORPUSCULAR HEMOGLOBIN 29.4 pg (27.0-33.4); MEAN CORPUSCULAR HGB CONC 33.8 g/dL (32.0-36.0); MEAN CORPUSCULAR VOLUME 87 fl (80-97); PLATELET COUNT 176 10^3/uL (150-450); RED CELL DISTRIBUTION WIDTH 16.1 % (11.5-14.0); WHITE BLOOD COUNT 6.8 10^3/uL (4.0-10.5)
[2019-08-31 14:04] LABS: APPEARANCE,URINE CLEAR; BILIRUBIN,URINE NEGATIVE (NEGATIVE); COLOR,URINE YELLOW; GLUCOSE, URINE >=500 mg/dL (NEGATIVE); KETONES,URINE NEGATIVE (NEGATIVE); LEUKOCYTE ESTERASE,URINE NEGATIVE (NEGATIVE); NITRITE,URINE NEGATIVE (NEGATIVE); PROTEIN,URINE NEGATIVE (NEGATIVE); URINE SPECIFIC GRAVITY 1.023; UROBILINOGEN,URINE NEGATIVE mg/dL (<2.0)
[2019-08-31 14:16] LABS: ALBUMIN 3.9 g/dL (3.5-5.0); ALKALINE PHOSPHATASE 58 U/L (38-126); ANION GAP 12 (5-19); ASPARTATE AMINO TRANSFERASE 47 U/L (17-59); BILIRUBIN,DIRECT 0.3 mg/dL (0.0-0.4); BILIRUBIN,TOTAL 0.4 mg/dL (0.2-1.3); BLOOD UREA NITROGEN 14 mg/dL (7-20); CALCIUM 9.2 mg/dL (8.4-10.2); CARBON DIOXIDE 30 mmol/L (22-30); CHLORIDE 99 mmol/L (98-107); GLUCOSE 131 mg/dL (75-110); POTASSIUM 3.9 mmol/L (3.6-5.0); TOTAL PROTEIN 7.8 g/dL (6.3-8.2)
== END ==
LOC: OD 13:15
PROVIDERS: ATTEND Internal Medicine Cardiovascular Disease
DX: I48.0 Paroxysmal atrial fibrillation (principal); Z79.01 Long term (current) use of anticoagulants; Z79.899 Other long term (current) drug therapy
CPT/HCPCS: 36415; 80048; 80076; 81001; 82272; 85027; 85730

== ENCOUNTER → 2019-11-29 | Outpatient (CLI) | payer MEDICARE, OTHER ==
[2019-11-29 12:38] LABS: HEMATOCRIT 43.4 % (37.9-51.0); HEMOGLOBIN 14.5 g/dL (13.5-17.0); MEAN CORPUSCULAR HGB CONC 33.3 g/dL (32.0-36.0); MEAN CORPUSCULAR VOLUME 90 fl (80-97); PLATELET COUNT 144 10^3/uL (150-450); RED BLOOD COUNT 4.82 10^6/uL (4.35-5.55); RED CELL DISTRIBUTION WIDTH 15.8 % (11.5-14.0); WHITE BLOOD COUNT 6.4 10^3/uL (4.0-10.5)
[2019-11-29 12:46] LABS: APPEARANCE,URINE CLEAR; BILIRUBIN,URINE NEGATIVE (NEGATIVE); COLOR,URINE YELLOW; GLUCOSE, URINE >=500 mg/dL (NEGATIVE); KETONES,URINE TRACE mg/dL (NEGATIVE); LEUKOCYTE ESTERASE,URINE NEGATIVE (NEGATIVE); NITRITE,URINE NEGATIVE (NEGATIVE); PROTEIN,URINE NEGATIVE (NEGATIVE); URINE SPECIFIC GRAVITY 1.029; UROBILINOGEN,URINE NEGATIVE mg/dL (<2.0)
[2019-11-29 12:57] LABS: ALBUMIN 3.6 g/dL (3.5-5.0); ALKALINE PHOSPHATASE 55 U/L (38-126); ANION GAP 9 (5-19); ASPARTATE AMINO TRANSFERASE 43 U/L (17-59); BILIRUBIN,TOTAL 0.3 mg/dL (0.2-1.3); BLOOD UREA NITROGEN 13 mg/dL (7-20); CALCIUM 9.4 mg/dL (8.4-10.2); CARBON DIOXIDE 26 mmol/L (22-30); CHLORIDE 105 mmol/L (98-107); GLUCOSE 153 mg/dL (75-110); POTASSIUM 3.8 mmol/L (3.6-5.0); TOTAL PROTEIN 6.9 g/dL (6.3-8.2)
== END ==
LOC: OD 11:47
PROVIDERS: ATTEND Internal Medicine Cardiovascular Disease
DX: I48.0 Paroxysmal atrial fibrillation (principal); Z79.01 Long term (current) use of anticoagulants; Z79.899 Other long term (current) drug therapy
CPT/HCPCS: 36415; 80048; 80076; 81001; 82272; 85027; 85730

== ENCOUNTER → 2020-02-21 | Outpatient (CLI) | payer MEDICARE, OTHER ==
--- NOTE | 2020-02-21 10:24 | RADIOLOGY REPORT (SQ) ---
EXAM DESCRIPTION: U/S ABDOMEN COMPLETE W/O DOP IMAGES COMPLETED DATE/TIME: 02/21/2020 10:13 am REASON FOR STUDY: RIGHT UPPER QUADRANT PAIN R10.11 RIGHT UPPER QUADRANT PAIN COMPARISON: 04/09/2018 TECHNIQUE: Dynamic and static grayscale images acquired of the abdomen and recorded on PACS. Additio nal selected color Doppler and spectral images recorded. Note: Study does not meet criteria for complete doppler/duplex scan LIMITATIONS: None. FINDINGS: PANCREAS: No masses. Visualized pancreatic duct normal caliber. LIVER: Increased echogenicity with decreased visualization of the portal triads. Liver measures 14.8 cm. No focal lesions. LIVER VASCULATURE: Normal directional flow of the main portal vein and hepatic veins. GALLBLADDER: No stones. Normal wall thickness. No pericholecystic fluid. ULTRASOUND-DETECTED HINKLE'S SIGN: Cholelithiasis. No focal wall thickening or pericholecystic fluid . INTRAHEPATIC DUCTS AND COMMON DUCT: CBD and intrahepatic ducts normal caliber. No filling defects. INFERIOR VENA CAVA: Normal flow. AORTA: Proximal aorta measures up to 2.9 cm. RIGHT KIDNEY: Normal size measuring 12.1 cm. Scattered cysts, largest in the interpolar region taurus uring up to 6.0 cm. No solid or suspicious masses. No hydronephrosis. No calcifications. LEFT KIDNEY: Normal size measuring 11.9 cm. Scattered cysts, largest in the interpolar region measu ring up to 3.0 cm. No solid or suspicious masses. No hydronephrosis. No calcifications. SPLEEN: Normal size measuring 9.0 cm. PERITONEAL AND PLEURAL SPACES: No ascites or effusions. OTHER: No other significant finding. IMPRESSION: 1. Hepatic steatosis. 2. Cholelithiasis. 3. Scattered renal cysts. TECHNICAL DOCUMENTATION: JOB ID: [id number] 2010 [employer]- All Rights Reserved Reading location - IP/workstation name: [email or web address]
== END ==
LOC: RAD 08:47
PROVIDERS: ATTEND Physician Assistant
DX: K80.20 Calculus of gallbladder without cholecystitis without obstruction (principal); R10.11 Right upper quadrant pain; Q61.02 Congenital multiple renal cysts; K76.0 Fatty (change of) liver, not elsewhere classified
CPT/HCPCS: 76700

== ENCOUNTER → 2020-02-29 | Outpatient (CLI) | payer MEDICARE, OTHER ==
[2020-02-29 09:17] LABS: HEMATOCRIT 44.7 % (37.9-51.0); HEMOGLOBIN 14.8 g/dL (13.5-17.0); MEAN CORPUSCULAR HEMOGLOBIN 30.1 pg (27.0-33.4); MEAN CORPUSCULAR HGB CONC 33.2 g/dL (32.0-36.0); MEAN CORPUSCULAR VOLUME 91 fl (80-97); PLATELET COUNT 169 10^3/uL (150-450); RED BLOOD COUNT 4.94 10^6/uL (4.35-5.55); RED CELL DISTRIBUTION WIDTH 15.7 % (11.5-14.0); WHITE BLOOD COUNT 5.4 10^3/uL (4.0-10.5)
[2020-02-29 09:20] LABS: APPEARANCE,URINE CLEAR; BILIRUBIN,URINE NEGATIVE (NEGATIVE); COLOR,URINE YELLOW; GLUCOSE, URINE >=500 mg/dL (NEGATIVE); KETONES,URINE NEGATIVE (NEGATIVE); LEUKOCYTE ESTERASE,URINE NEGATIVE (NEGATIVE); NITRITE,URINE NEGATIVE (NEGATIVE); PROTEIN,URINE NEGATIVE (NEGATIVE); UROBILINOGEN,URINE NEGATIVE mg/dL (<2.0)
[2020-02-29 09:57] LABS: ALBUMIN 3.7 g/dL (3.5-5.0); ALKALINE PHOSPHATASE 59 U/L (38-126); ANION GAP 7 (5-19); ASPARTATE AMINO TRANSFERASE 26 U/L (17-59); BILIRUBIN,TOTAL 0.6 mg/dL (0.2-1.3); BLOOD UREA NITROGEN 7 mg/dL (7-20); CALCIUM 9.4 mg/dL (8.4-10.2); CARBON DIOXIDE 27 mmol/L (22-30); CHLORIDE 105 mmol/L (98-107); GLUCOSE 182 mg/dL (75-110); POTASSIUM 3.9 mmol/L (3.6-5.0); TOTAL PROTEIN 7.3 g/dL (6.3-8.2)
== END ==
LOC: OD 08:36
PROVIDERS: ATTEND Internal Medicine Cardiovascular Disease
DX: I48.0 Paroxysmal atrial fibrillation (principal); Z79.01 Long term (current) use of anticoagulants; Z79.899 Other long term (current) drug therapy
CPT/HCPCS: 36415; 80048; 80076; 81001; 82272; 85027; 85730

== ENCOUNTER → 2020-05-23 | Outpatient (CLI) | payer MEDICARE, OTHER ==
--- NOTE | 2020-05-23 14:09 | RADIOLOGY REPORT (SQ) ---
EXAM DESCRIPTION: CT HEAD WITHOUT IMAGES COMPLETED DATE/TIME: 05/23/2020 12:57 pm REASON FOR STUDY: (R41.0)DISORIENTATION, UNSPECIFIED R41.0 DISORIENTATION, UNSPECIFIED COMPARISON: MR head 09/02/2018 CT head 09/02/2018 TECHNIQUE: Axial images acquired through the brain without intravenous contrast. Images reviewed wi th bone, brain and subdural windows. Additional sagittal and coronal reconstructions were generated. Images stored on PACS. All CT scanners at this facility use dose modulation, iterative reconstruction, and/or weight based d osing when appropriate to reduce radiation dose to as low as reasonably achievable (ALARA). [facility]: Dose Right [facility]: CareDose [facility]: Dose Right [facility]: Teradose 4D [facility]: Smart Proactive Comfort RADIATION DOSE: CT Rad equipment meets quality standard of care and radiation dose reduction techniq ues were employed. CTDIvol: 48.9 mGy. DLP: 911 mGy-cm. mGy. LIMITATIONS: None. FINDINGS: VENTRICLES: Normal size and contour. CEREBRUM: No masses. No hemorrhage. No midline shift. No evidence for acute infarction. Normal gra y/white matter differentiation. No areas of low density in the white matter. CEREBELLUM: No masses. No hemorrhage. No alteration of density. No evidence for acute infarction. EXTRAAXIAL SPACES: No fluid collections. No masses. ORBITS AND GLOBE: No intra- or extraconal masses. Normal contour of globe without masses. CALVARIUM: No fracture. PARANASAL SINUSES: No fluid or mucosal thickening. SOFT TISSUES: No mass or hematoma. OTHER: No other significant finding. IMPRESSION: NORMAL BRAIN CT WITHOUT CONTRAST. EVIDENCE OF ACUTE STROKE: NO. COMMENT: Quality ID # [id number]: Final reports with documentation of one or more dose reduction techniques (e.g., Automated exposure control, adjustment of the mA and/or kV according to patient size, use of iterative reconstruction technique) TECHNICAL DOCUMENTATION: JOB ID: [id number] 2010 [employer]- All Rights Reserved Reading location - IP/workstation name: [email or web address]
== END ==
LOC: RAD 12:40
PROVIDERS: ATTEND Physician Assistant
DX: R41.0 Disorientation, unspecified (principal)
CPT/HCPCS: 70450

== ENCOUNTER → 2020-05-24 | Outpatient (CLI) | payer MEDICARE, OTHER ==
[2020-05-24 15:59] LABS: HEMATOCRIT 43.7 % (37.9-51.0); HEMOGLOBIN 14.2 g/dL (13.5-17.0); MEAN CORPUSCULAR HEMOGLOBIN 29.5 pg (27.0-33.4); MEAN CORPUSCULAR HGB CONC 32.5 g/dL (32.0-36.0); MEAN CORPUSCULAR VOLUME 91 fl (80-97); PLATELET COUNT 193 10^3/uL (150-450); RED BLOOD COUNT 4.81 10^6/uL (4.35-5.55); WHITE BLOOD COUNT 6.2 10^3/uL (4.0-10.5)
[2020-05-24 16:02] LABS: APPEARANCE,URINE CLEAR; BILIRUBIN,URINE NEGATIVE (NEGATIVE); COLOR,URINE YELLOW; GLUCOSE, URINE >=500 mg/dL (NEGATIVE); KETONES,URINE TRACE mg/dL (NEGATIVE); LEUKOCYTE ESTERASE,URINE NEGATIVE (NEGATIVE); NITRITE,URINE NEGATIVE (NEGATIVE); PROTEIN,URINE NEGATIVE (NEGATIVE); UROBILINOGEN,URINE NEGATIVE mg/dL (<2.0)
[2020-05-24 16:09] LABS: ALBUMIN 3.7 g/dL (3.5-5.0); ALKALINE PHOSPHATASE 61 U/L (38-126); ANION GAP 11 (5-19); ASPARTATE AMINO TRANSFERASE 33 U/L (17-59); BILIRUBIN,DIRECT 0.1 mg/dL (0.0-0.4); BILIRUBIN,TOTAL 0.6 mg/dL (0.2-1.3); BLOOD UREA NITROGEN 16 mg/dL (7-20); CALCIUM 9.6 mg/dL (8.4-10.2); CARBON DIOXIDE 27 mmol/L (22-30); CHLORIDE 103 mmol/L (98-107); GLUCOSE 96 mg/dL (75-110); POTASSIUM 4.4 mmol/L (3.6-5.0); TOTAL PROTEIN 7.1 g/dL (6.3-8.2)
== END ==
LOC: OD 13:52
PROVIDERS: ATTEND Internal Medicine Cardiovascular Disease
DX: I48.0 Paroxysmal atrial fibrillation (principal); Z79.01 Long term (current) use of anticoagulants; Z79.899 Other long term (current) drug therapy
CPT/HCPCS: 36415; 80048; 80076; 81001; 82272; 83036; 83735; 85027; 85730

== ENCOUNTER → 2020-08-07 | Outpatient (CLI) | payer MEDICARE, OTHER ==
[2020-08-07 11:50] LABS: HEMATOCRIT 44.2 % (37.9-51.0); HEMOGLOBIN 14.6 g/dL (13.5-17.0); MEAN CORPUSCULAR HEMOGLOBIN 31.1 pg (27.0-33.4); MEAN CORPUSCULAR HGB CONC 33.1 g/dL (32.0-36.0); MEAN CORPUSCULAR VOLUME 94 fl (80-97); PLATELET COUNT 166 10^3/uL (150-450); RED BLOOD COUNT 4.71 10^6/uL (4.35-5.55); RED CELL DISTRIBUTION WIDTH 17.4 % (11.5-14.0); WHITE BLOOD COUNT 8.1 10^3/uL (4.0-10.5)
[2020-08-07 12:02] LABS: APPEARANCE,URINE CLEAR; BILIRUBIN,URINE NEGATIVE (NEGATIVE); COLOR,URINE YELLOW; GLUCOSE, URINE >=500 mg/dL (NEGATIVE); KETONES,URINE TRACE mg/dL (NEGATIVE); LEUKOCYTE ESTERASE,URINE NEGATIVE (NEGATIVE); NITRITE,URINE NEGATIVE (NEGATIVE); PROTEIN,URINE NEGATIVE (NEGATIVE); URINE SPECIFIC GRAVITY 1.026; UROBILINOGEN,URINE NEGATIVE mg/dL (<2.0)
[2020-08-07 12:11] LABS: ALBUMIN 3.6 g/dL (3.5-5.0); ALKALINE PHOSPHATASE 57 U/L (38-126); ANION GAP 12 (5-19); ASPARTATE AMINO TRANSFERASE 30 U/L (17-59); BILIRUBIN,DIRECT 0.3 mg/dL (0.0-0.4); BILIRUBIN,TOTAL 0.5 mg/dL (0.2-1.3); BLOOD UREA NITROGEN 16 mg/dL (7-20); CALCIUM 9.6 mg/dL (8.4-10.2); CARBON DIOXIDE 26 mmol/L (22-30); CHLORIDE 102 mmol/L (98-107); GLUCOSE 124 mg/dL (75-110); POTASSIUM 4.3 mmol/L (3.6-5.0)
[2020-08-07 13:45] LABS: CHOLESTEROL 127.11 mg/dL (0-200); TRIGLYCERIDES 125 mg/dL (<150)
[2020-08-07 14:01] LABS: DIRECT LDL 61 mg/dL (<100)
== END ==
LOC: OD 10:55
PROVIDERS: ATTEND Internal Medicine Cardiovascular Disease
DX: E78.00 Pure hypercholesterolemia, unspecified (principal); I48.0 Paroxysmal atrial fibrillation; Z79.01 Long term (current) use of anticoagulants; Z79.899 Other long term (current) drug therapy
CPT/HCPCS: 36415; 80048; 80061; 80076; 81001; 82272; 85027